=== PATIENT | female | born 1985 | race Caucasian/White ===

== ENCOUNTER 2021-11-07 08:14 | Emergency (ER) | payer MEDICAID, SELFPAY ==
[2021-11-07 08:22] VITALS: BP 119/81; RESP 20; TEMP 35.9; O2SAT 97; BMI 26.4
--- NOTE | 2021-11-07 08:53 | ED.EAR ---
HPI - Ear Problem General Chief complaint: Ear/Nose/Throat Problem Stated complaint: Covid+ Ear pain Time Seen by Provider: 11/07/21 08:17 Source: patient Mode of arrival: ambulatory Limitations: no limitations History of Present Illness HPI Narrative: Patient presents with 6 days of COVID symptoms, testing positive on day of onset, 6 days ago. Initially started with a fever and fatigue. The next day progressed to headache, sore throat, myalgias, eye pain which has been progressive over the last 5 days. Yesterday, she began having left ear pain which is worse today, she is unable to sleep due to this. She has been using DayQuil but no pain relievers to help with her symptoms. On specific questioning, she does admit that she is having cough which is worse at night she denies a prior history of COPD. She was diagnosed with pneumonia a couple of years ago and does have a nebulizer machine but no longer has supplies for it. Denies a history of asthma. She is not vaccinated against COVID and she does continue to smoke. She is no longer running a fever. Cough is nonproductive. Does feel short of breath at rest and with activity but not severe. No ear drainage noted, no history of ear surgeries, no prior history of recurrent ear infections or antibiotic resistant infections. Past medical history is most notable for generalized anxiety disorder, does not take long-term medications for this. Surgical history is negative for any HEENT surgeries. She has allergies to penicillin. MD Complaint: ear pain Location: left ear Related Data Previous Rx's Medication Instructions Recorded albuterol sulfate 2.5 mg/3 mL 2.5 mg (3 mL) inhalation Q4H PRN 11/07/21 (0.083 %) solution for nebulization #75 mL albuterol sulfate 90 mcg/actuation 2 inh inhalation Q4-6H PRN 11/07/21 breath activated powder inhaler shortness of breath or wheezing #1 ea nebulizer accessories #1 ea 11/07/21 prednisone 20 mg tablet 20 mg PO DAILY #5 tabs 11/07/21 Allergies Allergy/AdvReac Type Severity Reaction Status Date / Time Penicillins Allergy Verified 11/07/21 08:25 Review of Systems Narrative: Pertinent for the generalized, HEENT, respiratory symptoms as above. Denies other cardiovascular, GI, skin, musculoskeletal symptoms besides mild myalgias. PFSH [facility] Medical History (Updated 11/07/21 @ 08:56 by Nicole Lira MD) Generalized anxiety disorder Social History Smoking Status: Current every day smoker What tobacco products do you use: cigarettes Do you use any of these nicotine containing products: None Second hand tobacco smoke exposure: No How often do you have a drink containing alcohol: monthly or less How many standard drinks containing alcohol do you have on a typical day: 3 or 4 How often do you have six or more drinks on one occasion: Never AUDIT-C Alcohol total score: 2 Non-prescribed substance use: denies use Exam Const: Vital Signs, click to edit/add: Vital Signs - 24 hr 11/07/21 08:22 Temperature 96.7 F L Respiratory Rate 20 Blood Pressure [Le ft Upper Arm] 119/81 Pulse Oximetry 97 Oxygen Delivery Me thod Room Air Documenting provider has reviewed patient's vital signs: yes Common normals: no apparent distress General appearance: cooperative HENMT: Common normals: normocephalic, EAC's normal and TM's normal bilaterally Head and scalp: normocephalic External auditory canal: EAC's normal Tympanic membrane: TM's normal bilaterally Mouth: oral and palatal mucosa normal Throat: posterior oropharynx normal Other: TMs have normal light reflex bilaterally, are noninjected, no effusion. Nose with mild congestion, no mucopurulent discharge Eye: Common normals: PERRL, conjunctivae normal and no scleral icterus Conjunctiva: conjunctiva(e) normal Pupil: PERRL Neck & C-Spine: Common normals: full ROM and no lymphadenopathy Lymph: Lymphatic: no lymphadenopathy noted Resp: Common normals: normal respiratory effort Other: Moderate expiratory wheezing with mild prolongation of expiration. No crackles. Normal respiratory effort. No rales. Cardio: Common normals: regular rate, regular rhythm, S1 normal heart sound, S2 normal heart sound, no murmurs and peripheral pulses 2+ throughout Rate: regular rate Rhythm: regular rhythm Heart sounds: S1 normal and S2 normal Peripheral pulses: pulses 2+ throughout GI: Common normals: Normal to inspection, nondistended, normoactive bowel sounds present and soft to palpation Palpation: soft Extremity: General: no edema Neuro: Speech: speech normal Psych: Common normals: thought process normal Mood and affect: euthymic mood Thought process: normal thought process Insight: insight good Judgement: judgment good Skin: Common normals: no rashes or lesions noted General skin exam: no rashes or lesions noted Course Vital Signs Vital signs: Initial Vital Signs Temperature 96.7 F L 11/07/21 08:22 Temperature Source Temporal Artery Scan 11/07/21 08:22 Respiratory Rate 20 11/07/21 08:22 Blood Pressure 119/81 11/07/21 08:22 Blood Pressure Mean 93 11/07/21 08:22 Blood Pressure Position Sitting 11/07/21 08:22 Pulse Oximetry 97 11/07/21 08:22 Oxygen Delivery Method 11/07/21 08:22 Vital Signs Temperature 96.7 F L 11/07/21 08:22 Respiratory Rate 20 11/07/21 08:22 Blood Pressure 119/81 11/07/21 08:22 Pulse Oximetry 97 11/07/21 08:22 Oxygen Delivery Method 11/07/21 08:22 Temperature 96.7 F L 11/07/21 08:22 Respiratory Rate 20 11/07/21 08:22 Blood Pressure 119/81 11/07/21 08:22 Pulse Oximetry 97 11/07/21 08:22 Oxygen Delivery Method 11/07/21 08:22 Medical Decision Making MDM Narrative Medical decision making narrative: Counseled patient that referred pain is quite common in adults, no signs of an ear infection that would benefit from antibiotic therapy at this point symptomatic care discussed. Counseled patient on a much more concerned about the degree of wheezing and her risk factors for worsening COVID. She was agreeable to prednisone, a nebulizer treatment and home treatment for suspected COPD flare from COVID. I do not detect any signs of bacterial pneumonia on exam, she is not significantly hypoxic nor tachypneic. Chest x-ray would not assist in my medical decision making today. She is not a candidate for Paxil better other antiviral therapy due to the duration of her symptoms. This was discussed as well. Alarm symptoms and indications were coming back to the emergency department are discussed as well, she verbalizes understanding and agreement. Differential Diagnosis Differential Diagnosis: Otitis media, serous otitis, sinusitis, strep pharyngitis, COVID-19, COPD Discharge Plan Discharge Clinical Impression: COVID-19 Patient Disposition: Home, Self-Care Condition: Stable Instructions: COVID-19 and Chronic Health Conditions (ED) Additional Instructions: As we discussed, ear pain in adults can be from many different sources. The ears are wire into the same nerves as the nose in the back of the throat. It is common for years to hurt when these structures are inflamed. There are no signs of bacterial ear infections today. I would recommend that you continue on your DayQuil and that you begin taking Tylenol 1000 mg 4 times daily to help with the ear pain. Warm compresses may be helpful as well. A much more concerned about the wheezing that I hear in your lungs. Being unvaccinated and also a smoker with a history of pneumonia makes you very vulnerable to respiratory failure from COVID. In the emergency department, you were given a nebulizer solution and your 1st dose of prednisone, a steroid that will help reduce some of the inflammation. The typical course of this strain of COVID peaks on day 10-11. This means that your lungs may worsen. I would like for you to take prednisone for an additional 4 days, and I am sending prescriptions for nebulizer kit, medications to run through your nebulizer and also an inhaler to take on the go. Your likely to continue to wheeze for about 2 more weeks. Will take your lungs about 5 weeks to completely recover. Come back to the emergency department if you are so short of breath you cannot walk from her bed to the bathroom and or your oxygen levels are below 90% even at rest. Antibiotics will not be helpful at this stage of the illness, but maybe if secondary pneumonia develops which is typically around a 10-12. Come back to the emergency department if your worsening significantly. Activity Level: Activity as Tolerated Discharge Diet: Regular Prescriptions: New prednisone 20 mg tablet 20 mg PO DAILY Qty: 5 0RF (DME) nebulizer accessories Misc See Rx Instructions .Route Qty: 1 1RF Rx Instructions: As directed albuterol sulfate 2.5 mg /3 mL (0.083 %) solution for nebulization 2.5 mg inhalation Q4H PRNQty: 75 1RF albuterol sulfate 90 mcg/actuation aerosol powdr breath activated 2 inh inhalation Q4-6H PRN (Reason: shortness of breath or wheezing) Qty: 1 1RF Follow Up/Referrals: Stacia Falk MD [Primary Care Provider] - Stand Alone Forms: [employer] Info Instructions
[2021-11-07] MEDS: predniSONE 10 MG TABLET 40 MG PO (08:58)
[2021-11-07] MEDS: IPRAT-ALBUT 0.5-2.5 MG/3 ML NEB 1 NEB IH (08:59)
== END 2021-11-07 09:21 | disposition home or self-care (01) ==
LOC: ED 08:57
PROVIDERS: Emergency Provider Family Medicine; PCP Family Medicine
DX: U07.1 COVID-19 (principal)
CPT/HCPCS: 94640; 99282; 99284; J7512

== ENCOUNTER 2021-11-08 17:13 | Emergency (ER) | payer MEDICAID, SELFPAY ==
[2021-11-08 17:33] VITALS: BP 125/76; PULSE 73; RESP 24; TEMP 36.4; O2SAT 95; BMI 42.6
--- NOTE | 2021-11-08 17:54 | CRLHL7_ITS ---
For Patients: As a result of the Cures Act, medical imaging exams and procedure reports are released immediately into your electronic medical record. You may view this report before your referring provider. If you have questions, please contact your health care provider. Indication: Cough, guzman virus Comparison: Two-view chest January 23, 2020 Technique: Single AP view chest Findings: There is hyperinflation and mild central bronchial thickening. There is no focal consolidation, effusion, or pneumothorax. The cardiomediastinal silhouette is within normal limits. The bony thorax is grossly intact. Impression: Mild central bronchial thickening without dense consolidation. Dictated by Marlon Esparza MD @ 11/08/2021 7:13:28 PM (Electronically Signed)
--- NOTE | 2021-11-08 17:55 | ED.CHESTPAIN ---
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 She states that she feels like her heart is full. She is a smoker. She was diagnosed with COVID 1 week ago. She does have albuterol that she uses at home as needed. She was also started on a steroid this week. She reports some nausea but no vomiting. She does have some lightheadedness and feels some shortness of breath. She states that she felt sweaty. Prior to this she had good exercise tolerance. She arrives with normal vital signs and is in no acute distress. She is not using accessory muscles for breathing. She states that the discomfort in her left anterior chest is not reproducible with certain movements, deep breathing, or palpating in this area. She reports a family history of coronary artery disease. Her mother from a heart attack. Related Data Previous Rx's Medication Instructions Recorded albuterol sulfate 2.5 mg/3 mL 2.5 mg (3 mL) inhalation Q4H PRN 11/07/21 (0.083 %) solution for nebulization #75 mL albuterol sulfate 90 mcg/actuation 2 inh inhalation Q4-6H PRN 11/07/21 breath activated powder inhaler shortness of breath or wheezing #1 ea nebulizer accessories #1 ea 11/07/21 prednisone 20 mg tablet 20 mg PO DAILY #5 tabs 11/07/21 Allergies Allergy/AdvReac Type Severity Reaction Status Date / Time Penicillins Allergy Verified 11/07/21 08:25 Review of Systems Status of ROS Reports: 10 or more systems reviewed and unremarkable except as noted in History and below Narrative Constitutional: No fevers, no weight gain or loss. Eyes: No discharge. No vision changes. HENT: No congestion, no sore throat, no ear pain. Cardiovascular: No palpitations. Chest discomfort as described above. Respiratory: She reports a cough and congestion. Gastrointestinal: No abdominal pain, no vomiting, no diarrhea. Genitourinary: No dysuria, no hematuria. Musculoskeletal: Normal range of motion. Skin: No rashes, no pruritis. Neurological: No dizziness, weakness, sensory change, speech change. Endo/Heme/Allergies: No bruising or bleeding. No polydipsia. Pysch: no suicidality, no anxiety, no insomnia. All other systems reviewed and are negative. [facility] Medical History (Updated 11/08/21 @ 18:55 by Landen Benavides MD) Generalized anxiety disorder Social History Smoking Status: Current every day smoker What tobacco products do you use: cigarettes Do you use any of these nicotine containing products: None Second hand tobacco smoke exposure: No How often do you have a drink containing alcohol: monthly or less How many standard drinks containing alcohol do you have on a typical day: 3 or 4 How often do you have six or more drinks on one occasion: Never AUDIT-C Alcohol total score: 2 Non-prescribed substance use: denies use Exam Narrative Exam Narrative: Constitutional: Well-developed, well-nourished, no acute distress. HEENT: Normocephalic, atraumatic. Neck: Normal range of motion. Nontender. Supple. Heart: Regular. No murmurs. Normal rate. Intact distal pulses. Lungs: Clear to auscultation. No chest discomfort. No wheezes, rhonchi, or rales. Abdomen: Normal bowel sounds. Nontender. No rebound tenderness. Genitalia: Deferred. Back: No midline tenderness. Normal range of motion. Extremities: Normal range of motion. No injury. Skin: Intact. No rash. Warm. No erythema or pallor. Neurologic: No altered sensation. No weakness. Alert and oriented. Psychiatric: No suicidality. No anxiety or depression. No insomnia. Nursing notes and vitals signs are reviewed. Const Vital Signs, click to edit/add: Vital Signs - 24 hr 11/08/21 17:33 Temperature 97.6 F Pulse Rate [Left Pulse Oximeter] 73 Respiratory Rate 24 Blood Pressure [Right Upper Arm] 125/76 Pulse Oximetry 95 Oxygen Delivery Method Room Air Course Vital Signs Vital signs: Initial Vital Signs Temperature 97.6 F 11/08/21 17:33 Temperature Source Temporal Artery Scan 11/08/21 17:33 Pulse Rate 73 11/08/21 17:33 Pulse Rhythm 11/08/21 17:33 Respiratory Rate 24 11/08/21 17:33 Blood Pressure 125/76 11/08/21 17:33 Blood Pressure Mean 92 11/08/21 17:33 Blood Pressure Position Supine 11/08/21 17:33 Pulse Oximetry 95 11/08/21 17:33 Oxygen Delivery Method 11/08/21 17:33 Vital Signs Temperature 97.6 F 11/08/21 17:33 Pulse Rate 73 11/08/21 17:33 Respiratory Rate 24 11/08/21 17:33 Blood Pressure 125/76 11/08/21 17:33 Pulse Oximetry 95 11/08/21 17:33 Oxygen Delivery Method 11/08/21 17:33 Temperature 97.6 F 11/08/21 17:33 Pulse Rate 73 11/08/21 17:33 Respiratory Rate 24 11/08/21 17:33 Blood Pressure 125/76 11/08/21 17:33 Pulse Oximetry 95 11/08/21 17:33 Oxygen Delivery Method 11/08/21 17:33 MDM - Chest Pain MDM Narrative Medical decision making narrative: This patient comes in reporting a week of upper respiratory symptoms related to a COVID infection. She has been feeling some fullness in her left chest that she attributes to her heart. She does not have any exercise tolerance. She arrives with normal vital signs and actually has rather normal exam. I discussed lab and imaging options with the patient and it was agreed by shared decision to have an x-ray done along with EKG and a bedside ultrasound of her heart. These results are returned with normal findings. This was sufficiently reassuring to the patient. She is currently taking a steroid. She also has albuterol that can be used as needed and directed. I did provide a prescription for Tylenol 3. Imaging Data Chest x-ray: My impression: Negative chest by my review with radiology report pending. ECG Data Attestation: I personally reviewed and interpreted this ECG as follows: Interpretation: Normal sinus rhythm. Rate is 68 beats per minute. There are no specific ST or T-wave abnormalities. Discharge Plan Discharge Clinical Impression: COVID-19 Patient Disposition: Home, Self-Care Condition: Stable Additional Instructions: Use medication as needed and indicated. Follow up with MD or return if worsening. Prescriptions: No Action prednisone 20 mg tablet 20 mg PO DAILY Qty: 5 0RF (DME) nebulizer accessories Misc See Rx Instructions .Route Qty: 1 1RF Rx Instructions: As directed albuterol sulfate 2.5 mg /3 mL (0.083 %) solution for nebulization 2.5 mg inhalation Q4H PRNQty: 75 1RF albuterol sulfate 90 mcg/actuation aerosol powdr breath activated 2 inh inhalation Q4-6H PRN (Reason: shortness of breath or wheezing) Qty: 1 1RF Follow Up/Referrals: Stacia Falk MD [Primary Care Provider] - Stand Alone Forms: [employer] Info Instructions Procedures Ultrasound Cardiac exam #1: Anatomical areas examined: subxiphoid, parasternal long and parasternal short Indications: chest pain Exam type: limited transthoracic echocardiogram Impression: negative exam
== END 2021-11-08 19:00 | disposition home or self-care (01) ==
PROVIDERS: Emergency Provider Emergency Medicine Emergency Medical Services; PCP Family Medicine
DX: U07.1 COVID-19 (principal)
CPT/HCPCS: 71045; 76604; 76705; 93005; 93308; 99284

== ENCOUNTER 2022-06-25 17:35 | Emergency (ER) | payer MEDICAID, SELFPAY ==
[2022-06-25 17:46] VITALS: BP 115/76; PULSE 73; RESP 18; TEMP 36.2; O2SAT 98; BMI 41.6
[2022-06-25 18:00] LABS: Appearance Urine Clear (Clear); Bilirubin Urine Negative (Negative); Blood Urine Negative (Negative); Color Urine Yellow (Yellow); Glucose Urine Negative (Negative); Ketones Urine Negative (Negative); Leukocyte Esterase Urine Negative (Negative); Nitrite Urine Negative (Negative); Protein Urine Negative (Negative); Specific Gravity Urine 1.025 (1.000-1.030); Urobilinogen Urine 0.2 (0.2-1.0); pH Urine 5.5 (5.0-8.5)
[2022-06-25 18:10] LABS: RBC Urine 0-2 (0-2); WBC Urine 0-2 (0-5)
== END 2022-06-25 20:32 | disposition left against medical advice (07) ==
PROVIDERS: Emergency Provider Emergency Medicine Emergency Medical Services; PCP Family Medicine
DX: R10.9 Unspecified abdominal pain (principal); Z53.21 Procedure and treatment not carried out due to patient leaving prior to being seen by health care provider
CPT/HCPCS: 81001

== ENCOUNTER 2023-10-18 13:45 | Outpatient (RCR) | payer OTHER, MEDICAID, SELFPAY | END 2024-02-15 23:59 | disposition home or self-care (01) | PROVIDERS: PCP Family Medicine; Visit Provider Family Medicine | DX: M25.552 Pain in left hip (principal); M25.652 Stiffness of left hip, not elsewhere classified; M62.9 Disorder of muscle, unspecified; M53.2X8 Spinal instabilities, sacral and sacrococcygeal region; Z51.89 Encounter for other specified aftercare | CPT/HCPCS: 97110; 97140; 97162 ==

== ENCOUNTER 2023-12-23 17:54 | Outpatient (CLI) | payer MEDICAID, SELFPAY | END 2023-12-23 17:55 | disposition home or self-care (01) | LOC: NFLDREF 12-24 19:18 | PROVIDERS: PCP Family Medicine; Referring Provider Family Medicine; Visit Provider Physician Assistant | DX: R30.0 Dysuria (principal) | CPT/HCPCS: 87086; 87186 ==

== ENCOUNTER 2024-12-23 15:17 | Outpatient (CLI) | payer MEDICAID, SELFPAY | END 2024-12-23 15:18 | disposition home or self-care (01) | LOC: AMB 12-26 19:23 | PROVIDERS: PCP Family Medicine; Visit Provider Family Medicine | DX: I49.9 Cardiac arrhythmia, unspecified (principal); R42 Dizziness and giddiness | CPT/HCPCS: A0425; A0427 ==

== ENCOUNTER 2024-12-23 16:10 | Emergency (ER) | payer MEDICAID, SELFPAY ==
[2024-12-23] VITALS (21 sets, daily range): BP systolic 106–128; BP diastolic 57–97; PULSE 65–87; RESP 8–21; TEMP 36.2; O2SAT 95–100; BMI 41.5
--- OUTSIDE RECORDS SUMMARY | 2024-12-23 16:12 | XMS_ITS | Clinical Summary ---
Author Organization [facility] Address [address] [place] [id number] Care Team Providers Care [employer] Contact Printer Name Role Phone Stacia Falk MD Primary Care Provider [phone] Allergies Active Allergy Reactions Criticality Noted Date Comments Penicillins 04/20/2007 Over used when she was young, she had rheumatic fever. Medications cyclobenzaprine (FLEXERIL) 5 mg tabletIndication s:TMJ dysfunction Take 1-2 Tablets (5-10 mg) by mouth every 8 hours if needed for Muscle Spasm. 20 Tablet 4 Active albuterol HFA (Ventolin HFA) 90 mcg/actuation inhalerIndicatio ns:SOB (shortness of breath) Inhale 1-2 Puffs by mouth every 4 hours if needed for Shortness Of Breath or Wheezing. 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 09/26/2023 Elevated WBC count 08/01/2023 Overview (08/01/2023): Neutrophils and lymphs TMJ dysfunction 05/17/2023 Family history of diabetes mellitus 05/17/2023 Dizziness 05/17/2023 Paroxysmal SVT (supraventricular tachycardia) BMI 40.0-44.9, adult 11/09/2018 Moderate episode of recurrent major depressive d isorder 05/11/2017 LGSIL of cervix of undetermined significance 08/2015 Overview (03/30/2021): 10/30/2014 ASCUS/HPV+ 11/20/2014 [place]: Benign biopsy 01/21/2016 LGSIL 02/05/2016 [place]: No biopsy 12/31/2016 NIL 12/31/2016 [place]: Benign biopsies 03/17/2018 ASCUS/HPV+ 04/12/2018 [place]: BONITA I 03/17/2021 ASCUS/HPV+, HPV 16/18 negative Plan: Colposcopy Tobacco abuse 02/24/2013 Adjustment disorder with mixed anxiety and depre ssed mood 08/03/2011 Herpes simplex without mention of complication 1 03/10/2008 Anxiety state, unspecified 09/10/2008 Nondependent amphetamine or related acting sympathomimetic abuse, in remission Panic disorder (episodic paroxysmal anxiety) Attention deficit hyperactivity disorder (ADHD) Bipolar disorder Resolved Problems Problem Noted Date Diagnosed Date Resolved Date Dysplasia of cervix, low grade (BONITA 1) 04/14/2018 11/20/2018 Overview (04/14/2018): BONITA 1 on pathology 03/2018. Will need repeat Pap smear with cotesting in 2019 Marginal Placenta previa in second trimester, normal on 31 week ultrasound 04/23/2016 07/12/2023 Overview (04/23/2016): Next ultrasound is due at 28 weeks. 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 No outbreaks since then. acyclovir filled. Will plan on starting prophylaxis at [address] Brower do delivery, she will schedule an OB check with her to help decide. Supervision of other normal 09/20/2008 08/22/2014 Immunizations Immunization Administration Dates Next Due Influenza A (H1N1), Inactiva sarah (Age >=3 Years) 01/03/2009 Influenza, IIV3 (Age >=3 years) 11/11/2008,02/09,12/30/2003 Influenza, IIV4 12/23/2015 Tdap 07/14/2016,09/06/2011 Family History Medical History Relation Name Comments Good Health Father Cancer-breast Maternal Aunt 1 Other Maternal Aunt 2 lupus Good Health Mother Diabetes Paternal Grandmother Heart Disease Paternal Grandmother Relation Name Status Comments Father Maternal Aunt 1 Maternal Aunt 2 Mother Paternal Grandmother Social History Tobacco Use Types Packs/Day Years Used Date Smoking Tobacco: Every Day Cigarettes 1 26.8 Started: 03/20/1998 Smokeless Tobacco: Never Tobacco Cessation:Ready to Q uit: Yes; Counseling Given: Yes Alcohol Use Standard Drinks/Week Comments Yes 0 (1 standard drink = 0.6 oz pur e alcohol) 1 drink 4 x a year PHQ-2 Answer Date Recorded PHQ-2 TOTAL SCORE 2 12/21/2023 Social Connections Answer Date Recorded Do you often feel lonely or isolated from those around you? 0 05/09/2024 Financial Resource Strain Answer Date R ecorded Difficulty of Paying Living Expenses 3 05/09/2024 Difficulty of Paying Living Expenses Not on file 05/09/2024 Food Insecurity Answer Date Recorded Do you worry your food will run out before you are able to buy more? 1 05/09/2024 Transportation Needs Answer Date Record ed Does lack of transportation keep you from medica l appointments? 1 05/09/2024 Does lack of transportation keep you from work, meetings or getting things that you need? 1 05/09/2024 Housing Stability Answer Date Recorded What is your housing situation today? 1 05/09/2024 Interpersonal Safety Answer Date Record ed Are you being hit, kicked, p ushed or yelled at (see row info)? No 07/12/2023 Interpersonal Safety Abuse 12 - 18 Not on file 07/12/2023 Interpersonal Safety Ambulatory Vulnerability No t on file 07/12/2023 Utilities Answer Date Recorded Do you have trouble paying f or utilities (for example, heat, electricity, water, phone)? 1 05/09/2024 Comments No Sex and Gender Information Value Date Recorded Sex Assigned at Female 11/02/2020 9:53 AM CDT Legal Sex Female 5:24 AM SYSTEMS SOFTWARE ENGINEER Gender Identity Female 11/02/2020 9:53 AM CDT Sexual Orientation Straight 11/02/2020 9: 53 AM CDT Occupation Industry Job Start Date Job End Date [employer] Not on file Not on file Not on file [employer] WORK Not on file Not on file Not on file Obstetrics History Para Term AB IAB SAB Ectopic Multiple Livin g Live Births 6 3 3 1 1 3 Date Outcome GA Total Labor Labor/2nd/3rd Weight Sex Type Anes PTL Anu A1 A5 Name Clin 2004 Term 40w 0d 12h 00m/ 3.37 kg (7 lb 7 oz) M Vag Kaleb 2005 Term 40w 0d 5h 00m/ 2.61 kg (5 lb 12 oz) M Vag rj 2009 Term 40w 0d 6h 00m/ 3.4 kg (7 lb 8 oz) M Vag Blaine 2012 SAB Comments:12 weeks Last Filed Vital Signs Vital Sign Reading Time Taken Comments Blood Pressure 112/76 05/09/2024 2:46 PM CDT Pulse 69 05/09/2024 2:46 PM CDT Temperature 37.1 C (98.7 F) 05/09/2024 2:46 PM CDT Respiratory Rate 16 08/04/2023 8:50 AM CDT Oxygen Saturation 100% 05/09/2024 2:46 PM CDT Inhaled Oxygen Concentration - - Weight 119.3 kg (263 lb) 05/09/2024 2:46 PM CDT Height 166.4 cm (5' 5.51) 08/04/2023 8:50 AM CD T Body Mass Index 43.08 08/04/2023 8:50 AM CDT Plan of Treatment Upcoming Encounters Date Type Department Care Team (Late st Contact Info) Description 01/03/2025 9:10 AM SYSTEMS SOFTWARE ENGINEER Office Visit [facility] [address] [place] [address] Stacia Falk MD [address] [place] [address] Health Maintenance Due Date Last Done Comments Hepatitis B series for 19+ ( 1 of 3 - 19+ 3-dose series) 2004 Pneumococcal series for age 6-49 (1 of 2 - PCV) 2004 HPV series for age 9-45 (1 - 3-dose SCDM series) 2012 Pap test for age 21-65 03/17/2024 2, 03/17/2021, 03/17/2018, Additional history exists BMI (ht and wt on same day) for age 18+ 08/03/2024 08/04/2023, 03/10/2022, 03/17/2021, Additional history exists Influenza Vaccine (#1) 2024 6, 11/11/2008, 02/09/2006, Additional history exists Depression screening for age 12+ 12/20/2024 12/21/2023, 11/18/2023, 06/15/2022, Additional history exists Tetanus booster 07/14/2026 07/14/2016, 09/06/2011 RSV vaccine for adults or (1 - 1-dose 75+ series) 2060 HIV for age 15-65 Completed 12/23/2015, , 06/01/2012, Additional history exists Hepatitis C screening for ag e 18-79 Completed 12/23/2015 Procedures Procedure Name Priority Date/Time Associated Diagnosis Comments AUTOMATIC LOG CUT OFF SAWYER THIN PREP PAP DIAGNOSTIC IMAGED Routine 03/17/2021 8:54 AM SYSTEMS SOFTWARE ENGINEER ASCUS with positive high risk HPV cervical ANTI HIV 1/2 Routine 12/23/2015 1:31 PM SYSTEMS SOFTWARE ENGINEER Less than 8 weeks gestation of (HC) ANTI HCV Routine 12/23/2015 1:31 PM SYSTEMS SOFTWARE ENGINEER Less than 8 weeks gestation of (HC) from Last 3 Months or Most Recently Relevant to Health Maintenance Results * (ABNORMAL) AUTOMATIC LOG CUT OFF SAWYER THIN PREP PAP DIAGNOSTIC IMAGED (03/17/2021 8:54 AM SYSTEMS SOFTWARE ENGINEER) Case Report Gynecologic Cytology Report Case: [id number] Authorizing Provider: Stacia Falk MD Collected: 03/17/2021 0854 Ordering Location: [facility] Received: 03/17/2021 0922 Clinic First Screen: Maximiliano Judd Pathologist: Bri Bennett MD Specimen: AUTOMATIC LOG CUT OFF SAWYER ThinPrep Vial Diagnostic, Cervical 03/25/2021 9:33 AM SYSTEMS SOFTWARE ENGINEER [facility] INTERPRETATION/ RESULT ATYPICAL SQUAMOUS CELLS OF UNDETERMINED SIGNIFICANCE (ASCUS)(A) (none) 03/25/2021 9:33 AM SYSTEMS SOFTWARE ENGINEER [facility] at 0933 SYSTEMS SOFTWARE ENGINEER SPECIMEN ADEQUACY Satisfactory for evaluation No endocervical component seen 03/25/2021 9:33 AM SYSTEMS SOFTWARE ENGINEER [facility] HPV REQUEST HPV and PAP 03/25/2021 9:33 AM SYSTEMS SOFTWARE ENGINEER [facility] Date of LMP na 03/25/2021 9:33 AM SYSTEMS SOFTWARE ENGINEER [facility] Last Pap Date 03/17/18 03/25/2021 9:33 AM SYSTEMS SOFTWARE ENGINEER [facility] Last Pap Result ASCUS 9:33 AM SYSTEMS SOFTWARE ENGINEER [facility] Abnormal Pap or [place] Bx in last 5 years Yes 03/25/2021 9:33 AM SYSTEMS SOFTWARE ENGINEER [facility] Menstrual Status Hormonally Suppressed 03/25/2021 9:33 AM SYSTEMS SOFTWARE ENGINEER [facility] [place] Bx Done Today No 03/25/2021 9:33 AM SYSTEMS SOFTWARE ENGINEER [facility] Additional Information None Given 03/25/2021 9:33 AM SYSTEMS SOFTWARE ENGINEER [facility] Comment: Cytology is screened at [facility] - [address], [place] [address] and [facility] - [address], [place] [address] and [facility] - [address] [place] [address] Interpreted at [facility] - [address], [place] [address] Automated Review Successful 03/25/2021 9:33 AM SYSTEMS SOFTWARE ENGINEER [facility] Comment:Specimen processed s uccessfully by automated film drying machine operator device, ThinPrep Imaging System, [employer] ANCILLARY TESTING AUTOMATIC LOG CUT OFF SAWYER HPV Ordered, Please see separate report 03/25/2021 9:33 AM SYSTEMS SOFTWARE ENGINEER [facility] Note The pap test is a screening technique, not a diagnostic procedure. It is used primarily to screen for squamous cancers and precursor lesions. Published studies have shown that it is subject to both false negative and false positive results. The pap test should not be used as the sole means to diagnose or exclude pre-malignant and malignant lesions. 03/25/2021 9:33 AM SYSTEMS SOFTWARE ENGINEER [facility] Other (Cervical) Non-Blood / Unknown 03/17/2021 8:54 AM SYSTEMS SOFTWARE ENGINEER 03/17/2021 9:22 AM SYSTEMS SOFTWARE ENGINEER Stacia Falk MD PATHOLOGY/CYTOLOGY Final Re sult [facility] [address] [place] [address], [place] * ANTI HCV (12/23/2015 1:31 PM SYSTEMS SOFTWARE ENGINEER) HEPATITIS C ANTIBODY Non-Reacti ve Non-Reacti ve 12/23/2015 9:27 PM SYSTEMS SOFTWARE ENGINEER [facility] Blood BLOOD SPECIMEN / Unknown Venipuncture / Unknown 12/23/2015 1:31 PM SYSTEMS SOFTWARE ENGINEER 12/23/2015 1:31 PM SYSTEMS SOFTWARE ENGINEER Narrative [facility] - 12/23/2015 9:27 PM SYSTEMS SOFTWARE ENGINEER Antibodies to HCV not detected; does not exclude the possibility of exposure to HCV. us Emily OWENS SEND OUTS Final R esult [facility] [address] [place] [address], [place] * ANTI HIV 1/2 (12/23/2015 1:31 PM SYSTEMS SOFTWARE ENGINEER) HIV-1/HIV-2 ANTIBODY Non-Reacti ve Non-Reacti ve 12/23/2015 9:31 PM SYSTEMS SOFTWARE ENGINEER [facility] Blood BLOOD SPECIMEN / Unknown Venipuncture / Unknown 12/23/2015 1:31 PM SYSTEMS SOFTWARE ENGINEER 12/23/2015 1:31 PM SYSTEMS SOFTWARE ENGINEER Narrative [facility] - 12/23/2015 9:31 PM SYSTEMS SOFTWARE ENGINEER HIV-1 p24 and HIV-1/HIV-2 Ab not detected us Emily OWENS SEND OUTS Final R esult [facility] [address] [place] [address], from Last 3 Months or Most Recently Relevant to Health Maintenance Insurance [facility] NONPROFIT INSURANCE [employer] NONPROFIT INSURANCE TRUST Care Teams [employer] Contact Printer Relationship Specialty Start Date End Date Stacia Falk MD [address] [place] [address] PCP - General Family Practice 02/15/17
--- NOTE | 2024-12-23 16:34 | CRLHL7_ITS ---
For Patients: As a result of the Cures Act, medical imaging exams and procedure reports are released immediately into your electronic medical record. You may view this report before your referring provider. If you have questions, please contact your health care provider. INDICATION: : dyspnea, episodes of SVT COMPARISON: Chest radiograph on November 08, 2021 and January 23, 2020 TECHNIQUE: Two view(s) of the chest FINDINGS: The cardiomediastinal silhouette and pulmonary vasculature are unremarkable. There is no focal airspace consolidation, pleural effusion, or pneumothorax. No displaced fractures. IMPRESSION: No acute cardiopulmonary process. Dictated by Edward Smith MD @ 12/23/2024 5:09:26 PM (Electronically Signed)
--- NOTE | 2024-12-23 16:35 | ED.GENADULT ---
HPI - General Adult General Date Seen: 12/23/24 Chief complaint: Arrhythmia/Palpitations Stated complaint: Dizziness Time Seen by Provider: 12/23/24 16:33 History of Present Illness HPI narrative: 39-year-old female brought to the ER today by EMS. Report from EMS is that she had a dizzy spell while driving so pulled over and called 911. After they arrived, she developed a regular narrow complex tachycardia that they suspect was SVT. They had the patient do Valsalva maneuvers but did not did not break . then she spontaneously converted back to sinus before they could do any pharmacologic intervention. She apparently reported to them a history of SVT. She is a smoker. She drinks a couple of energy drinks every day. No other drugs. History from the patient is that she does have a history of some sort of tachycardia few years ago that was diagnosed in the ER in [place]. She does not really remember the specifics of that and does not remember if she was referred to a financial services associate or not. She is able to tell me that she has been having dizzy spells off and on for the past couple of days, multiple times per day, probably more than once every hour. With these dizzy spells she does not really feel any chest pain or palpitations. No fainting. No other symptoms between the dizzy spells. She is not sure what to make of the disease shows because she does have history of anxiety and panic attacks and has had panic attacks before. In particular, she apparently had a lot of panic attacks after her mother . She reports a history of anxiety and depression but is not currently on any meds. When asked directly about SVT she says he thinks that was the tachycardia that she had. She does not remember if she was referred to her financial services associate or not She does smoke tobacco. No drugs. She drinks energy drinks. No alcohol. 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 No recent cough. No fevers. No abdominal pain. No vomiting or diarrhea. During her episode of dizziness and palpitations in the ambulance she also had some pleuritic left-sided chest pain. That is feeling better now. Through [employer] [facility] and see that she has an ER visit from December 2022 for episodes of lightheadedness. During that ER visit she had a workup that showed normal sodium 140, potassium 4.3, chloride 106, bicarb 27, glucose 85, BUN 14, creatinine 0.61, magnesium 2.1, negative test, white count 14, hemoglobin 13.6, platelet count 283. Urinalysis normal. COVID negative. Flu negative. Troponin undetectable. EKG shows sinus rhythm. Diagnosed with vertigo. She had an ER visit to the ER in [place] on 10/22/2020 for syncope, weakness, back pain. Per that note she had a history of paroxysmal SVT but had not yet started her Zio patch. In the ER that day EKG and troponin were normal. CT head was normal. Chest x-ray was. Electrolytes were normal. I reviewed the rhythm strips brought in by EMS. The show a regular narrow complex tachycardia with heart rate around 150-155. I suspect this is SVT but differential could include a flutter with 2:1 conduction. Related Data Home Medications ?Medication ?Instructions ?Recorded ?Confirmed levonorgestrel (Mirena) intrauterine 12/23/24 Previous Rx's ?Medication ?Instructions ?Recorded metoprolol tartrate 25 mg tablet 12.5 mg (1/2 x 25 mg) PO BID PRN 12/23/24 Dizzy spells #30 tabs Allergies Allergy/AdvReac Type Severity Reaction Status Date / Time Penicillins Allergy Verified 12/23/23 18:02 [facility] Medical History (Updated 12/23/24 @ 19:58 by Boni Nugent MD) Generalized anxiety disorder ?F41.1 - Generalized anxiety disorder (ICD-10) Social History Smoking Status: Current every day smoker What tobacco products do you use: cigarettes Do you use any of these nicotine containing products: None Second hand tobacco smoke exposure: No How often do you have a drink containing alcohol: monthly or less How many standard drinks containing alcohol do you have on a typical day: 3 or 4 How often do you have six or more drinks on one occasion: Never AUDIT-C Alcohol total score: 2 Non-prescribed substance use: denies use service: No Exam Narrative: Exam Narrative: Constitutional: Appears well-developed and well-nourished. Alert. Conversant. Non toxic. HENT: Head: Atraumatic. Nose: Nose normal. Mouth/Throat: Oral mucosa is clear and moist. no trismus. Pharynx normal. Tonsils symmetric. No tonsillar enlargement, erythema, or exudate. Eyes: Conjunctivae normal. EOM normal. Pupils equal, round, and reactive to light. No scleral icterus. Neck: Normal range of motion. Neck supple. No tracheal deviation present. Cardiovascular: Normal rate, regular rhythm. No gallop. No friction rub. No murmur heard. Symmetric radial artery pulses . No JVD Pulmonary/Chest: Effort normal. No stridor. No respiratory distress. No wheezes. No rales. No rhonchi . No tenderness. Abdominal: Soft. No distension. No mass. No tenderness. No rebound. No guarding. Musculoskeletal: RUE: Normal range of motion. No tenderness. No deformity LUE: Normal range of motion. No tenderness. No deformity RLE: Normal range of motion. No edema. No tenderness. No deformity LLE: Normal range of motion. No edema. No tenderness. No deformity Lymph: No cervical adenopathy. Neurological: Alert and oriented to person, place, and time. Normal strength. CN II-VII intact. No sensory deficit. GCS eye subscore is 4. GCS verbal subscore is 5. GCS motor subscore is 6. Normal coordination Skin: Skin is warm and dry. No rash noted. No pallor. Normal capillary refill. Psychiatric: Normal mood. Anxious. Polite. Const: Vital Signs, click to edit/add: Vital Signs - 24 hr 12/23/24 16:14 12/23/24 16:24 12/23/24 16:30 Temperature 97.2 F L Pulse Rate 83 80 Pulse Rate [Pulse Oximeter] 87 Respiratory Rate 20 17 15 Blood Pressure Blood Pressure [Le ft Upper Arm] 128/97 H Pulse Oximetry 100 100 [facility] 12/23/24 16:32 12/23/24 16:59 12/23/24 17:00 Temperature Pulse Rate 84 83 75 Pulse Rate [Pulse Oximeter] Respiratory Rate 14 Blood Pressure 118/72 118/66 Blood Pressure [Le ft Upper Arm] Pulse Oximetry 97 99 99 Oxygen Delivery Me thod 12/23/24 17:01 12/23/24 17:02 12/23/24 17:15 Temperature Pulse Rate 73 76 82 Pulse Rate [Pulse Oximeter] Respiratory Rate 16 18 18 Blood Pressure 106/59 L Blood Pressure [Le ft Upper Arm] Pulse Oximetry 100 100 98 Oxygen Delivery Me thod 12/23/24 17:30 12/23/24 17:33 12/23/24 17:45 Temperature Pulse Rate 71 74 65 Pulse Rate [Pulse Oximeter] Respiratory Rate 13 16 14 Blood Pressure 120/78 Blood Pressure [Le ft Upper Arm] Pulse Oximetry 100 100 99 Oxygen Delivery Me thod 12/23/24 18:00 12/23/24 18:03 12/23/24 18:15 Temperature Pulse Rate 71 72 66 Pulse Rate [Pulse Oximeter] Respiratory Rate 15 Blood Pressure 122/57 L Blood Pressure [Le ft Upper Arm] Pulse Oximetry 95 96 97 Oxygen Delivery Me thod 12/23/24 18:30 12/23/24 18:33 12/23/24 18:45 Temperature Pulse Rate 69 70 Pulse Rate [Pulse Oximeter] Respiratory Rate 21 17 Blood Pressure 117/67 Blood Pressure [Le ft Upper Arm] Pulse Oximetry 95 96 Oxygen Delivery Me thod 12/23/24 18:49 12/23/24 19:00 12/23/24 19:02 Temperature Pulse Rate Pulse Rate [Pulse Oximeter] 78 75 Respiratory Rate 18 8 L 16 Blood Pressure Blood Pressure [Le ft Upper Arm] 117/67 114/70 Pulse Oximetry 98 99 Oxygen Delivery Me thod Room Air Room Air Course Course ED Course: Recheck nurses note that she still has intermittent dizziness and just does not feel right. Heart rate is ranging from 70 up to 107 but seems to be sinus on the monitor. Nurses did a 2nd EKG at 5:26 p.m.. EKG 2. Normal sinus rhythm. Rate 90. RI interval 146. Normal QRS axis. No pathologic Q-waves. No ST segment elevation or depression. No T-wave changes. QTC 378, QTC 462. Patient improved after 0.5 mg Ativan for anxiety. She felt much better. Her sister arrived. Reevaluation(s) Reevaluation #1: Discussed results of workup with the patient her sister. Discussed with cardiology through [facility], Dr. Townsend. She will arrange for outpatient follow-up for this patient with the EP. Plans would be for outpatient Zio patch and echo. She recommends prescription for metoprolol 12.5 mg b.i.d. p.r.n.. Patient can use it if needed if she is having spells of SVT. Vital Signs Vital signs: Initial Vital Signs Temperature 97.2 F L 12/23/24 16:14 Temperature Source Temporal Artery Scan 12/23/24 16:14 Pulse Rate 87 12/23/24 16:14 Respiratory Rate 20 12/23/24 16:14 Blood Pressure 128/97 H 12/23/24 16:14 Blood Pressure Mean 107 H 12/23/24 16:14 Blood Pressure Position Supine 12/23/24 16:14 Pulse Oximetry 100 12/23/24 16:14 Oxygen Delivery Method Room Air 12/23/24 16:14 Vital Signs Temperature 97.2 F L 12/23/24 16:14 Pulse Rate 87 12/23/24 16:14 Respiratory Rate 20 12/23/24 16:14 Blood Pressure 128/97 H 12/23/24 16:14 Pulse Oximetry 100 12/23/24 16:14 Oxygen Delivery Method Room Air 12/23/24 16:14 Temperature 97.2 F L 12/23/24 16:14 Pulse Rate 75 12/23/24 19:02 Respiratory Rate 16 12/23/24 19:02 Blood Pressure 114/70 12/23/24 19:02 Pulse Oximetry 99 12/23/24 19:02 Oxygen Delivery Method Room Air 12/23/24 19:02 Medications Administered Medications: Discontinued Medications Generic Name Dose Route Start Last Admin Trade Name Freq PRN Reason Stop Dose Admin Lorazepam 0.5 mg 12/23/24 17:31 12/23/24 17:37 Lorazepam 2 Mg/Ml Inj IVP 12/23/24 17:32 0.5 mg ONCE ONE Administration Medical Decision Making [facility] Narrative Medical decision making narrative: This patient presents for evaluation of episodes of dizziness off and on for the past couple of days. Rhythm strip per EMS showed a regular narrow complex tachycardia which I think was SVT. Less likely would be a flutter with 2:1 conduction.. Initial ECG here in the ER shows normal sinus rhythm and no dysrhythmogenic abnormality such as WPW, prolonged QT, Brugada syndrome, and no ischemia. lunchroom monitor while the patient here in the ER showed no dysrhythmia or ectopy. No recurrent arrhythmias. A broad differential diagnosis was considered including SVT, Atrial fibrillation, ventricular arrhythmia, thyroid disease, acute electrolyte abnormality, drugs/medications, caffeine intake or other stimulants, medication side effect, anemia, heart disease, PE, among others. The workup and exam here in ED shows not specific cause of the patient's palpitations, and no risks factors to warrant admission. Clinical judgement suggests that supportive outpatient management is indicated. Outpatient follow-up with Cardiology is arranged in the cardiology clinic will call the patient tomorrow to arrange that. Cardiology Will arrange an outpatient Holter monitor an echo. Cardiology recommends initiation of metoprolol 12.5 mg b.i.d. p.r.n.. Discussed the plan in detail with the patient and her sister in precautions to ER were reviewed. Questions answered Lab Data Labs: Lab Results 12/23/24 12/23/24 Range/Units 17:00 17:08 WBC 12.99 H (4.50-11.00) K/uL RBC 4.77 (4.00-5.20) m/uL Hgb 15.1 (12.0-16.0) gm/dL Hct 44.8 (33.0-51.0) % MCV 94 (80-100) fL MCH 32 (26-34) pg MCHC 34 (32-36) gm/dL RDW Coeff of Kenny 12.6 (11.5-15.5) % Plt Count 309 (140-440) K/uL Neut % (Auto) 67.0 (42.0-72.0) % Lymph % (Auto) 23.8 (20-44) % [place] % (Auto) 5.4 (0.0-11.0) % Eos % (Auto) 2.0 (0.0-7.0) % Baso % (Auto) 0.7 (0.0-3.0) % Neut # (Auto) 8.70 H (1.7-7.0) K/uL Lymph # (Auto) 3.10 H (0.90-2.90) K/uL [place] # (Auto) 0.70 (0.00-0.90) K/UL Eos # (Auto) 0.30 (0.00-0.50) K/uL Baso # (Auto) 0.10 (0.00-0.30) K/uL Abs Immat Gran (auto) 0.10 (0.00-0.30) K/uL Imm/Tot Granulo (auto) 1.1 % D-Dimer Quant (PE/DVT) < 0.22 (0.00-0.50) ug/ml Sodium 139 (135-149) mmol/L Potassium 3.7 (3.6-5.1) mmol/L Chloride 104 (96-114) mmol/L Carbon Dioxide 23 (20-32) mmol/L Anion Gap 12 (7-15) mEq/L BUN 13 (5-24) mg/dL Creatinine 0.7 (0.5-1.5) mg/dL Estimated Creat Clear 97.09 Estimated GFR 113 ml/min Glucose 123 H (60-115) mg/dL Calcium 8.9 (8.4-10.6) mg/dL TSH 2.150 (0.270-4.200) uIU/mL Urine HCG, Qual Negative (Negative) POC Troponin I 0.00 L (0.01-0.04) ng/ml Imaging Data Chest x-ray: Attestation: I have reviewed the pertinent imaging results. My impression: No definite acute infiltrates. Question faintly increased opacity in the right upper lobe compared to the left but nothing definite. Await Radiology read Radiologist's impression: FINDINGS: The cardiomediastinal silhouette and pulmonary vasculature are unremarkable. There is no focal airspace consolidation, pleural effusion, or pneumothorax. No displaced fractures. IMPRESSION: No acute cardiopulmonary process. ECG Data Attestation: I personally reviewed and interpreted this ECG as follows: Interpretation: Normal sinus rhythm with sinus arrhythmia Rate 83 beats per minute RI interval 150. No delta waves Normal QRS axis. No pathologic Q-waves. No definite ST segment elevation or depression. Question ST depression only 1 beat of lead V5 which I think is artifact. QT 370, QTC 434 Compared to EKG from 11/09/2021, no definite change in the ST segments and T-waves. Previous low voltage is now normal. Discharge Plan Discharge Clinical Impression: Supraventricular tachycardia Patient Disposition: Home, Self-Care Condition: Stable Instructions: Supraventricular Tachycardia (ED) Additional Instructions: As we discussed, your workup shows that he had another episode of supraventricular tachycardia today. The rest of your workup shows normal blood counts, electrolytes and no sign of heart attack. To help treat this, please try to cut back on smoking and energy drinks. You can use the new [id number] needed. You can take 12.5 mg up to twice a day if needed. You only have to take the metoprolol if you are having a episode of SVT. Please follow-up with your financial services associate within the next few days. You should receive a phone call from your financial services associate at [facility] tomorrow to arrange a follow-up visit. Prescriptions: New metoprolol tartrate 25 mg tablet 12.5 mg PO BID PRN (Reason: Dizzy spells) Qty: 30 2RF No Action Mirena 21 mcg/24hr (up to 8 yrs) 52 mg intrauterine device intrauterine Follow Up/Referrals: Stacia Falk MD [Primary Care Provider, Family Practice] Stand Alone Forms: PT [place] [facility] Info Instructions
[2024-12-23 17:05] LABS: Hematocrit* 44.8 % (33.0-51.0); Hemoglobin* 15.1 gm/dL (12.0-16.0); Immature Granulocytes Pct Auto 1.1 %; Mean Corpuscular HGB Conc 34 gm/dL (32-36); Mean Corpuscular Hemoglobin 32 pg (26-34); Mean Corpuscular Volume 94 fL (80-100); RDW Coefficient of Variation % 12.6 % (11.5-15.5); Red Blood Count* 4.77 m/uL (4.00-5.20); White Blood Count* 12.99 K/uL (4.50-11.00)
[2024-12-23 17:08] LABS: Immature Granulocytes Abs Auto 0.10 K/uL (0.00-0.30); Lymphocytes Absolute Auto 3.10 K/uL (0.90-2.90); Slide Review Reflex No
[2024-12-23 17:16] LABS: Troponin, Point-of-Care* 0.00 ng/ml (0.01-0.04)
[2024-12-23 17:21] LABS: Ur HCG Qualitative* Negative (Negative)
[2024-12-23 17:24] LABS: Chloride* 104 mmol/L (96-114); Potassium* 3.7 mmol/L (3.6-5.1); Sodium* 139 mmol/L (135-149)
[2024-12-23 17:27] LABS: Anion Gap 12 mEq/L (7-15); Blood Urea Nitrogen* 13 mg/dL (5-24); Calcium* 8.9 mg/dL (8.4-10.6); Carbon Dioxide* 23 mmol/L (20-32); Creatinine* 0.7 mg/dL (0.5-1.5); Est. Creatinine Clearance* 97.09; Estimated Glomerular Filt Rate 113 ml/min; Glucose* 123 mg/dL (60-115)
[2024-12-23 17:45] LABS: D Dimer Quantitative* < 0.22 ug/ml (0.00-0.50)
[2024-12-23 18:11] LABS: TSH With Reflex to FT4* 2.150 uIU/mL (0.270-4.200)
== END 2024-12-23 20:07 | disposition home or self-care (01) ==
PROVIDERS: Emergency Provider Emergency Medicine; PCP Family Medicine
DX: I47.10 Supraventricular tachycardia, unspecified (principal); F41.9 Anxiety disorder, unspecified; F17.210 Nicotine dependence, cigarettes, uncomplicated; Z88.0 Allergy status to penicillin
CPT/HCPCS: 36415; 71046; 80048; 81025; 84443; 84484; 85025; 85379; 93005; 96374; 99283; 99284; J2060

== ENCOUNTER 2025-01-23 20:49 | Emergency (ER) | payer MEDICAID, SELFPAY ==
--- OUTSIDE RECORDS SUMMARY | 2025-01-23 20:52 | XMS_ITS | Clinical Summary ---
Author Organization [employer] [facility] Address [address] [place] [address] Care Team Providers Care Sack Keeper Name Role Phone Christine Falk MD Primary Care Provider [phone] Allergies Active AllergyReactionsCriticalityNoted BtznHzketpkhNdhwoftdxsq45/06/2008 Over used when she was young, she had rheumatic fever. Medications MedicationSigDispense QuantityRefillsLast FilledStart DateEnd DateStatus albuterol HFA (Ventolin HFA) 90 mcg/actuation inhaler Indications:SOB (shortness of breath)Inhale 1-2 Puffs by mouth every 4 hours if needed for Shortness Of Breath or Wheezing. ALSO USE 30 MINUTES BEFORE EXERCISE DIRECTED 36 g 5Active multivit with min-folic acid 200 mcg chew Indications:Paroxysmal SVT (supraventricular tachycardia) (HC)Chew by mouth. 90 Tablet 5Active metoprolol succinate (TOPROL XL) 25 mg Sustained-Release tablet Indications:Paroxysmal SVT (supraventricular tachycardia) (HC)Take 1 Tablet (25 mg) by mouth once daily. 90 Tablet 5Active tirzepatide (weight loss) (Zepbound) 2.5 mg/0.5 mL pen Indications:Obesity, Class III, BMI 40-49.9 (morbid obesity) (HC)Inject 2.5 mg subcutaneous once weekly. 2 mL 5Active cyclobenzaprine (FLEXERIL) 5 mg tablet Indications:TMJ dysfunctionTake 1-2 Tablets (5-10 mg) by mouth every 8 hours if needed for Muscle Spasm. 20 Tablet 5Active semaglutide (Wegovy) 0.25 mg/0.5 mL subcutaneous pen Indications:Obesity, Class III, BMI 40-49.9 (morbid obesity) (HC)Inject 0.25 mg subcutaneous once weekly for 28 days. 2 mL /5Active cyclobenzaprine (FLEXERIL) 5 mg tablet Indications:TMJ dysfunctionTake 1-2 Tablets (5-10 mg) by mouth every 8 hours if needed for Muscle Spasm. 20 Tablet Discontinued(Reorder (E-cancel not sent)) propranoloL 10 mg tablet Indications:PalpitationsTake 1 Tablet (10 mg) by mouth two times daily. 20 Tablet Discontinued(*Med complete/Regimen complete/Level of care change) metoprolol tartrate (LOPRESSOR) 25 mg tablet Indications:Paroxysmal SVT (supraventricular tachycardia) (HC)Take 0.5 Tablets (12.5 mg) by mouth two times daily. 30 Tablet /Discontinued(*Med complete/Regimen complete/Level of care change) metoprolol succinate (TOPROL XL) 25 mg Sustained-Release tablet Indications:Paroxysmal SVT (supraventricular tachycardia) (HC)Take 0.5 Tablets (12.5 mg) by mouth once daily. 45 Tablet Discontinued(*Medication adjustment) metoprolol succinate (TOPROL XL) 25 mg Sustained-Release tablet Indications:Paroxysmal SVT (supraventricular tachycardia) (HC)Take 0.5 Tablets (12.5 mg) by mouth two times daily. 90 Tablet Discontinued(*Med complete/Regimen complete/Level of care change)Hospital, Clinic, or Other Facility Administered MedicationOrdered Dose RouteFrequencyStart DateEnd DateStatus etonogestrel subdermal implant 1 Each (NEXPLANON) Indications:Encounter for contraceptive management, unspecified type1 EachSdrmQ 3 05/01/2018Active Active Problems ProblemNoted DateDiagnosed DateLow grade squamous intraepithelial lesion (LGSIL) at risk for high grade squamous intraepithelial lesion (HGSIL) on cytologic smear of lffjwn1301/21/2025 Overview (01/21/2025): 10/2014 ASCUS/HPV+ 11/2014 [place]: Benign biopsy 01/2016 LGSIL 01/2016 [place]: No biopsy 12/2016 NIL 12/2016 [place]: Benign biopsies 03/2018 ASCUS/HPV+ 03/2018 [place]: BONITA I 03/2021 ASCUS/HPV+, HPV 16/18 negative 12/2024 LSIL, cannot exclude HSIL/HPV+, HPV 16/18 negative Plan: Colposcopy Obesity, Class III, BMI 40-49.9 (morbid obesity)01/03/2025Greater trochanteric pain syndrome of left lower eaiwflkxk21/12/2024Elevated WBC count08/01/2023 Overview (08/01/2023): Neutrophils and lymphs TMJ waajzxrrrtk41/02/2024Family history of diabetes frdzftog96/02/2024Dizziness 4Paroxysmal SVT (supraventricular tachycardia)1BMI 40.0-44.9, adult11/09/2018Moderate episode of recurrent major depressive yevsrizx85/28/2018 Tobacco abuse02/24/2013djustment disorder with mixed anxiety and depressed mood 08/03/2011Herpes simplex without mention of /25/2009nxiety state, akaabouvtys68/28/2009Nondependent amphetamine or related acting sympathomimetic abuse, in remissionPanic disorder (episodic paroxysmal anxiety)Attention deficit hyperactivity disorder (ADHD)Bipolar disorder Resolved Problems ProblemNoted DateDiagnosed DateResolved DateDysplasia of cervix, low grade (BONITA 1) Overview (04/14/2018): BONITA 1 on pathology 03/2018. Will need repeat Pap smear with cotesting in 2019 Marginal Placenta previa in second trimester, normal on 31 week ultrasound Overview (04/23/2016): Next ultrasound is due at 28 weeks. 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 acyclovir filled. Will plan on starting prophylaxis at [address] Brower do delivery, she will schedule an OB check with her to help decide. Supervision of other normal ptxuoklss15 Encounters DateTypeDepartmentCare NjreXjoogltjitd07/08/2025Results Follow-Up [facility] [address] [place] [address] Christine Falk MD Pap Plan01/15/2025Telephone [facility] [address] [place] [address] Christine Falk MD Prior Authorization (semaglutide (Wegovy) 0.25 mg/0.5 mL subcutaneous pen APPROVED January 20, 2025to July 21, 2025)01/08/2025Telephone [facility] [address] [place] [address] Christine Falk MD Prior Authorization (tirzepatide (weight loss) (Zepbound) 2.5 mg/0.5 mL pen Denied)01/04/2025Orders Only [facility] [address] [place] [address] Christine Falk MD <No scans attached>01/03/2025 9:10 AM CSTOffice Visit [facility] [address] [place] [address] Christine Falk MD Physical (39 year old); ER Follow up01/03/20254501Rfescd38/19/2025Telephone [facility] - [address] [place] [phone] Raza Wray MD Refill Request; Medication Management (Metoprolol )01/01/2025 2:00 PM CSTOffice Visit [facility]uthi L[facility]pez [address] [place] [address] [address] [facility] [place] [address] Raza Wray MD General Cardiology Est (EST PT. STAT F/U TO [facility] ER 12/25. H/O PSVT. ECHO DONE 12/29./Pt mentions that she feels like she is doing well - did work 9 hours yesterday which is the first time inawhile. Feels like her anxiety has been elevated recently too)12/31/20243790Mtcxee92/15/2025 11:00 AM CSTAncillary Procedure [facility] [address] [place] [address] 12/28/2024 12:45 PM CSTOffice Visit [facility] [address] [place] [address] Christine Falk MD ER Follow up ([facility] 12/23/24 and [facility] 12/25/24)12/28/2024 8:30 AM CSTNurse/Clinic Staff Only [address] [place] [address] 12/28/20247257Baxaqv31/14/2025Refill [facility] [address] [place] [address] Christine Falk MD Refill Request (Metoprolol Tartrate)12/27/20243172Kqzwbl87/11/2025 9:46 AM CONVEYOR INSTALLER - 12/25/2024 12:13 PM CSTEmergency [facility] [address] [place] [address] Tanner Cade MD Palpitations (Primary Dx); Anxiety Discharge Disposition: Home Self Care12/25/20242136Pdagnz96/09/2025Orders Only [facility] Scanner 1 scan: (1-Ord) MARIYA, JOY CHEST 2V, Telephone [facility] [address] [place] [address] Hamid, Izabela, MBChB from Last 3 Months Immunizations ImmunizationAdministration DatesNext DueInfluenza A (H1N1), Inactivated (Age >=3 Years)01/03/2009Influenza, IIV3 (Age >=3 years)11/11/2008,02/09/2006,12/30/2003 Influenza, TUO371/09/20150201Fsvg19/31/2017,09/06/2011 Family History Medical HistoryRelationNameCommentsGood HealthFatherCancer-breastMaternal Aunt 1 OtherMaternal Aunt 2lupusGood HealthMotherDiabetesPaternal GrandmotherHeart DiseasePaternal GrandmotherRelationNameStatusCommentsFatherMaternal Aunt 1 Maternal Aunt 2MotherPaternal Grandmother Social History Tobacco UseTypesPacks/DayYears UsedDateSmoking Tobacco: Every AmaQmpzlcewif634.8 Started: 03/20/1998Smokeless Tobacco: Never Tobacco Cessation:Ready to Q uit: Yes; Counseling Given: Yes Alcohol UseStandard Drinks/WeekCommentsYes0 (1 standard drink = 0.6 oz pure alcohol)1 drink 4 x a yearPHQ-2AnswerDate RecordedPHQ-2 TOTAL JSKAM441 Social ConnectionsAnswerDate RecordedDo you often feel lonely or isolated from those around you?lcohol UseAnswerDate RecordedHow often do you have a drink containing alcohol?How many drinks containing alcohol do you have on a typical day when you are drinking?How often do you have five or more drinks on one occasion?Financial Resource StrainAnswer Date RecordedDifficulty of Paying Living Buktulmj934/26/2025Difficulty of Paying Living ExpensesNot on file05/09/2024Food InsecurityAnswerDate RecordedDo you worry your food will run out before you are able to buy more? Transportation NeedsAnswerDate RecordedDoes lack of transportation keep you from medical appointments?Does lack of transportation keep you from work, meetings or getting things that you need?Housing StabilityAnswerDate RecordedWhat is your housing situation today?Interpersonal Safety AnswerDate RecordedAre you being hit, kicked, pushed or yelled at (see row info)?No12/25/2024Interpersonal Safety Abuse 12 - 18Not on file12/25/2024 Interpersonal Safety Ambulatory VulnerabilityNot on file12/25/2024Utilities AnswerDate RecordedDo you have trouble paying for utilities (for example, heat, electricity, water, phone)?CommentsNoSex and Gender InformationValueDate RecordedSex Assigned at NuuyrLxnnbz71/19/2021 9:53 AM CDT Legal IoyWsmhsv07/14/2013 5:24 AM CSTGender IkskbxgpTwhpmr15/19/2021 9:53 AM CDT Sexual SlbemerlwxeMbskasad10/19/2021 9:53 AM CDTOccupationIndustryJob Start Date Job End DateRust ConsultingNot on fileNot on fileNot on fileLINE WORKNot on file Not on fileNot on file Obstetrics History GravidaParaTermPretermABIABSABEctopicMultipleLivingLive Gzfqpq361640LqzxUpuvbqh GATotal LaborLabor/2nd/9rvCajyfjDaoOhscCcpaBFWVjgQ4M7OceqZzcfUxwaddk85/27/2005 Ugch80l1a71e 00m/3.37 kg (7 lb 7 oz)CVquXbzdh90/29/2260Oaqb78t9c6z 00m/2.61 kg (5 lb 12 oz)EEzofktlcti65/16/4475Mkbg58d3a7p 00m/3.4 kg (7 lb 8 oz)MVagIsaac 07/24/2012SABBirth Comments:12 weeksGravida Last Filed Vital Signs Vital SignReadingTime TakenCommentsBlood Wzwfzmls720/7001/03/2025 9:23 AM CONVEYOR INSTALLER Zjgye570201/03/2025 9:23 AM YUFRtjqljostzt08.9 ??C (98.4 ??F)12/25/2024 9:50 AM CSTRespiratory Jneg215102/25/2024 9:50 AM CSTOxygen Gqbamzhqoq34%01/03/2025 9:23 AM CSTInhaled Oxygen Concentration--Jjyudy884.3 kg (258 lb 9.6 oz)01/03/2025 9:23 AM YWRPrjone961.8 cm (5' 5.67)01/03/2025 9:23 AM CSTBody Mass Index42.16 01/03/2025 9:23 AM CONVEYOR INSTALLER Plan of Treatment DateTypeDepartmentCare Team (Latest Contact Info)Fqgvywzsqop89/21/2026 2:00 PM CSTProcedure Only [facility] [address] [place] [address] Christine Falk MD [address] [place] [address] Health MaintenanceDue DateLast DoneCommentsHepatitis B series for 19+ (1 of 3 - 19+ 3-dose series)2004Pneumococcal series for age 6-49 (1 of 2 - PCV) 2004HPV series for age 9-45 (1 - 3-dose SCDM series)2012COVID-19 vaccine series ( - 2024- season)2024Influenza Vaccine (#1)2024 12/23/2015, 11/11/2008, 02/09/2006, Additional history existsBMI (ht and wt on same day) for age 18+, 01/01/2025, 08/04/2023, Additional history existsDepression screening for age 12+, 12/21/2023, 11/18/2023, Additional history existsTetanus /, 09/06/2011Pap test for age 21-65, 01/03/2025, 03/17/2021, Additional history existsHIV for age 15-71Trjvgtolq10/08/2016, 04/13/2013, 06/01/2012, Additional history existsHepatitis C screening for age 18-79 Wkmlujmby23/08/2016 Procedures Procedure NamePriorityDate/TimeAssociated DiagnosisCommentsGYN THIN PREP PAP SCREEN YHDGYUIrrksnu80/20/2025 10:18 AM CONVEYOR INSTALLER Screening for cervical cancer HPV HIGH PRLAGnzjpow41/20/2025 10:18 AM CONVEYOR INSTALLER Screening for cervical cancer ECHO TTE COMPLETE WO CDDVIKRHOFJW37/15/2025 11:36 AM CONVEYOR INSTALLER Paroxysmal SVT (supraventricular tachycardia) (HC) EXTENDED MLZASZPzrwzln19/14/2025 Paroxysmal SVT (supraventricular tachycardia) (HC) CBC WITH AUTO SSVOCKKTRBSYEGQS95/11/2025 10:35 AM CONVEYOR INSTALLER QDQGKLD5512/25/2024 10:35 AM CONVEYOR INSTALLER BASIC METABOLIC KQPSFWJHI36/11/2025 10:35 AM CONVEYOR INSTALLER CBC WITH AUTO OECSWSYANRWBKCFI39/11/2025 10:35 AM CONVEYOR INSTALLER EKG 12 NOHIIBZR09/11/2025 9:54 AM CONVEYOR INSTALLER SCAN-RADIOLOGY RATCGN9112/23/2024 12:00 AM CONVEYOR INSTALLER ANTI HIV 1/2Wgjyptz43/08/2016 1:31 PM CONVEYOR INSTALLER Less than 8 weeks gestation of (HC) ANTI ZGRFbpynsr20/08/2016 1:31 PM CONVEYOR INSTALLER Less than 8 weeks gestation of (HC) from Last 3 Months or Most Recently Relevant to Health Maintenance Results * (ABNORMAL) AQUACULTURE FARM MANAGER THIN PREP PAP SCREEN IMAGED [[id number]] (01/03/2025 10:18 AM CONVEYOR INSTALLER)ComponentValueRef RangeTest MethodAnalysis TimePerformed AtPathologist SignatureCase ReportGynecologic Cytology Report ? Case: [id number] ? Authorizing Provider: ??Christine Falk MD ? Collected: ? 01/03/2025 1018 ? Ordering Location: ? [facility] ?? Received: ?01/03/2025 1059 ? Clinic ? First Screen: ?Maximiliano Judd ? Pathologist: ? Walter Galloway Jr., ? MD ? Specimen: ?AQUACULTURE FARM MANAGER ThinPrep Vial Screening, Cervical ? 01/21/2025 12:58 PM [facility] INTERPRETATION/RESULTLOW GRADE SQUAMOUS INTRAEPITHELIAL LESION (LSIL) CANNOT EXCLUDE A HIGHER-GRADE LESION(A)(none)01/21/2025 12:58 PM [facility] at 1258 CSTSPECIMEN ADEQUACYSatisfactory for evaluation Endocervical component uajhovx6501/21/2025 12:58 PM [facility] LABORATORYHPV REQUESTHPV and PAP01/21/2025 12:58 PM [facility] LABORATORYDate of LMP 12:58 PM [facility]OR[facility]ORYLast Pap Date 12:58 PM CONVEYOR INSTALLER [facility] LABORATORYLast Pap CyykakJMHTX98/08/2025 12:58 PM [facility] LABORATORYAbnormal Pap or [place] Bx in last 5 yzqvoSq5201/21/2025 12:58 PM [facility] Menstrual StatusHormonally Pjtpdxzuqj22/08/2025 12:58 PM [facility] LABORATORYColp Bx Done CcoxpZc9801/21/2025 12:58 PM [facility] LABORATORYAdditional InformationNone given01/21/2025 12:58 PM [facility] LABORATORYComment: Cytology is screened at [facility] - [address], [place] [address] and [facility] - [address], [place] [address] and [facility] - [address], [place] [address] Interpreted at [facility] - [address], [place] [address] Automated GrwhseYhkyhpcmam32/08/2025 12:58 PM [facility] LABORATORYComment:Specimen processed successfully by automated machine whitener device, ThinPrep Imaging System, [employer]ANCILLARY TESTING GYNHPV Ordered, Please see separate gukyaw9201/21/2025 12:58 PM CSTST. VINCENT [facility] LABORATORYNoteThe pap test is a screening technique, not a diagnostic procedure. It is used primarily to screen for squamous cancers and precursor lesions. Published studies have shown that it is subject to both false negative and false positive results. The pap test should not be used as the sole means to diagnose or exclude pre-malignant and malignant lesions.01/21/2025 12:58 PM CONVEYOR INSTALLER [facility] LABORATORYSpecimen (Source)Anatomical Location / LateralityCollection Method / VolumeCollection TimeReceived TimeOther (Cervical)Non-Blood / Vyfugiz5201/03/2025 10:18 AM CST01/03/2025 10:59 AM CONVEYOR INSTALLER Narrative Authorizing ProviderResult TypeResult StatusChristine Falk MD PATHOLOGY/CYTOLOGYFinal ResultPerforming OrganizationAddressCity/State/ZIP Code Phone Number [facility] [address] [place] [address], * (ABNORMAL) HPV HIGH RISK (01/03/2025 10:18 AM CONVEYOR INSTALLER)ComponentValueRef RangeTest MethodAnalysis TimePerformed AtPathologist SignatureTYPE 16NegativeNegative 01/08/2025 2:58 PM CSTSOU[facility] LABORATORYTYPE 18 YuuturxtOkkgjiol14/25/2025 2:58 PM [facility] LABORATORYOTHER HIGH RISK TYPESPositive(A)Pfgtutcg54/25/2025 2:58 PM CSTSOUTH [facility]ISS[facility]IP[facility] LABORATORYSpecimen (Source)Anatomical Location / LateralityCollection Method / VolumeCollection TimeReceived TimeOther (Cervical)Non-Blood / Tiqzost2201/03/2025 10:18 AM CST01/04/2025 4:09 PM CONVEYOR INSTALLER Narrative [facility] - 01/08/2025 2:58 PM CONVEYOR INSTALLER Specimen is positive for the DNA of any one of, or combination of, the following high risk HPV types: 31, 33, 35, 39, 45, 51, 52, 56, 58, 59, 66, 68. HPV types 16 and 18 DNA were undetectable or below the pre-set threshold. ? Methodology: [address] HPV Test Authorizing ProviderResult TypeResult StatusChristine Falk MDMICROBIOLOGY Final ResultPerforming OrganizationAddressCity/State/ZIP CodePhone Number [facility] [address] [address], * ECHO TTE COMPLETE WO CONTRAST (12/29/2024 11:36 AM CONVEYOR INSTALLER)ComponentValueRef Range Test MethodAnalysis TimePerformed AtPathologist SignatureAORTIC VALVE MEAN PG5 mmHgEJECTION YJQCMCKU52%LVEDD5.1cmAnatomical RegionLateralityModality UltrasoundSpecimen (Source)Anatomical Location / LateralityCollection Method / VolumeCollection TimeReceived Time12/29/2024 10:55 AM CONVEYOR INSTALLER Narrative 12/31/2024 2:22 PM CONVEYOR INSTALLER ECHOCARDIOGRAM LASHAWN MON ? Accession#: ?? [id number] : ?1985 39 years Study Date: ?? 12/29/2024 10:55:11 AM Gender: F ?BP: ? 106/72 mmHg Height: 165.10 cm ?BSA: ?2.20 m? Weight: 116.58 kg ?Tech: ? RES ? Referring MD: CHRISTINE FALK Site: ? [facility] Reading Location: [place] [facility]-4 Patient Location: Outpatient. Procedure: 2D, Color Doppler and Spectral Doppler. Indication for study: Paroxysmal SVT Cardiac Rhythm: Regular.Study quality: Fair. Final Impressions: 1. Normal left ventricular size, normal wall thickness, normal global systolic function, calculatedEF of 62 %. 2. Normal left atrium size. 3. Normal cardiac valves 4. Compared to the prior study of 08/26/2017, there is no significant change. Chamber Sizes and Function Normal left ventricular size, normal wall thickness, normal global systolic function, calculated EFof 62 %. No resting regional wall motion abnormality visualized. Left atrial size is normal. Left atrial pressure is normal. Right ventricular cavity size is normal, global systolic RV function is normal. RV wall thickness is normal. The right atrium is normal. The pulmonary artery is of normal size and origin. The sinus of Valsalva is normal sized. The ascending aorta is normal sized. Valves, RV Pressures and Diastolic Function The aortic valve is normal in structure and trileaflet, no stenosis and no regurgitation. The mitral valve is normal in structure, no mitral regurgitation. Normal diastolic function. The tricuspid valve is normal in structure, regurgitation is not evident tricuspid regurgitation. Unable to assess right ventricular systolic pressure. The pulmonic valve is normal. No pulmonary regurgitation. Masses, Effusion, Shunts There is no pericardial effusion. The inferior vena cava is normal sized, respiratory size variation greater than 50%. No left to right shunting was detected by limited color flow Doppler interrogation of the interatrial septum. MEASUREMENTS AND CALCULATIONS 2-D Measurements and LV Function: LVID (d) ? 5.1 cm ? Planimetered EF 62 % LVID (s) ? 3.4 cm ? LV FS% (2D) ? 33 % IVS (d) ?0.8 cm ? LVOT diameter ?? 2.0 cm LVPW (d) ? 0.8 cm ? HR ?63 bpm Ao Sinus ? 3.2 cm ? LA Vol index ?19 ml/m2 Ao Sinus ULN 3.6 cm * ? RV Basal Diam ?? 3.3 cm Asc Ao ? 2.8 cm ? RV Mid Diam ? 2.6 cm Asc Ao ULN ?? 3.5 cm * * Input BSA outside of range, reported values correspond to BSA = 1.9 Diastology: Mitral ?Tissue Doppler E Peak 0.8 m/s ??e', Septum ? 0.12 m/s A Peak 0.5 m/s ??e', Lateral ?0.17 m/s E/A ?1.6 ?E/e' Average ?? 5.42 DT ? 211 msec Aortic Valve: Vmax ? 1.4 m/s ??LIO (V) ?? 2.44 cm? VTI ?0.32 m ?? LIO (I) ?? 2.39 cm? LVOT V max 1.1 m/s ??Max PG ?8 mmHg LVOT VTI ?? 0.25 m ?? Mean PG ?? 5 mmHg SV ? 78 ml ?Dim Index 0.76 SV index ?? 35 ml/m? CO ?4.9 l/min ?CI ?2.2 l/min/m? Mitral Valve: MVA ?3.6 cm? MV P 1/2 61 msec Tricuspid Valve and estimated PA pressures: TAPSE 2.3 cm . This study was interpreted by an [facility] accredited facility. ??Final ?? Procedure Note Vini Hebert MD - 12/31/2024 ECHOCARDIOGRAM LASHAWN MON : 1985 39 years Study Date: 12/29/2024 10:55:11 AM Gender: F BP: 106/72 mmHg Height: 165.10 cm BSA: 2.20 m? Weight: 116.58 kg Tech: RES Referring MD: CHRISTINE FALK Site: [facility] Reading Location: [place] [facility]4 Patient Location: Outpatient. Procedure: 2D, Color Doppler and Spectral Doppler. Indication for study: Paroxysmal SVT Cardiac Rhythm: Regular.Study quality: Fair. Final Impressions: 1. Normal left ventricular size, normal wall thickness, normal globalsystolic function, calculated EF of 62 %. 2. Normal left atrium size. 3. Normal cardiac valves 4. Compared to the prior study of 08/26/2017, there is no significantchange. Chamber Sizes and Function Normal left ventricular size, normal wall thickness, normal globalsystolic function, calculated EF of 62 %. No resting regional wall motionabnormality visualized. Left atrial size is normal. Left atrial pressureis normal. Right ventricular cavity size is normal, global systolic RVfunction is normal. RV wall thickness is normal. The right atrium isnormal. The pulmonary artery is of normal size and origin. The sinus ofValsalva is normal sized. The ascending aorta is normal sized. Valves, RV Pressures and Diastolic Function The aortic valve is normal in structure and trileaflet, no stenosis and no regurgitation. The mitral valve is normal in structure, no mitralregurgitation. Normal diastolic function. The tricuspid valve is normal instructure, regurgitation is not evident tricuspid regurgitation. Unable toassess right ventricular systolic pressure. The pulmonic valve is normal.No pulmonary regurgitation. Masses, Effusion, Shunts There is no pericardial effusion. The inferior vena cava is normal sized, respiratory size variation greater than 50%. No left to right shunting was detected by limited color flow Doppler interrogation of the interatrialseptum. MEASUREMENTS AND CALCULATIONS 2-D Measurements and LV Function: LVID (d) 5.1 cm Planimetered EF 62% LVID (s) 3.4 cm LV FS% (2D) 33% IVS (d) 0.8 cm LVOT diameter2.0 cm LVPW (d) 0.8 cm HR 63bpm Ao Sinus 3.2 cm LA Vol index 19ml/m2 Ao Sinus ULN 3.6 cm * RV Basal Diam3.3 cm Asc Ao 2.8 cm RV Mid Diam2.6 cm Asc Ao ULN 3.5 cm * * Input BSA outside of range, reported values correspond to BSA = 1.9 Diastology: Mitral Tissue Doppler E Peak 0.8 m/s e', Septum 0.12 m/s A Peak 0.5 m/s e', Lateral 0.17 m/s E/A 1.6 E/e' Average 5.42 DT 211 msec Aortic Valve: Vmax 1.4 m/s LIO (V) 2.44 cm? VTI 0.32 m LIO (I) 2.39 cm? LVOT V max 1.1 m/s Max PG 8 mmHg LVOT VTI 0.25 m Mean PG 5 mmHg SV 78 ml Dim Index 0.76 SV index 35 ml/m? CO 4.9 l/min CI 2.2 l/min/m? Mitral Valve: MVA 3.6 cm? MV P 1/2 61 msec Tricuspid Valve and estimated PA pressures: TAPSE 2.3 cm . This study was interpreted by an [facility] accredited facility. Final Authorizing ProviderResult TypeResult StatusMeljosh Falk MDECHO ORDFinal Result * ZIO PATCH XT - weekly to monthly symptoms. (12/28/2024)Specimen (Source) Anatomical Location / LateralityCollection Method / VolumeCollection Time Received Time12/28/2024 Narrative Boni Klein MD - 01/15/2025 12:00 AM CONVEYOR INSTALLER Agree with Findings. Please see scan document for full report. Signed By Boni Klein MD Procedure Note Boni Klein MD - 01/15/2025 Agree with Findings. Please see scan document for full report. Signed By Boni Klein MD Authorizing ProviderResult TypeResult StatusMeljosh Falk MDCARDIAC SERVICES ORDFinal Result * (ABNORMAL) CBC WITH AUTO DIFFERENTIAL (12/25/2024 10:35 AM CONVEYOR INSTALLER)ComponentValue Ref RangeTest MethodAnalysis TimePerformed AtPathologist SignatureWHITE BLOOD COUNT13.2(H)4.5 - 11.0 thou/cu mm12/25/2024 10:44 AM [facility] LABORATORYRED BLOOD COUNT4.644.00 - 5.20 mil/cu mm12/25/2024 10:44 AM [facility] DEJCZSOUFERDIKOIDSWD53.512.0 - 16.0 g/dL12/25/2024 10:44 AM [facility] GAMWCXASZNCSOCFJOUOL40.433.0 - 51.0 % 12/25/2024 10:44 AM [facility] CCDPAAHCBVIHI8697 - 100 fL 12/25/2024 10:44 AM [facility] ENRYMZFNRTKXF06.326.0 - 34.0 pg12/25/2024 10:44 AM [facility] QIDFQNMQCNTCMD72.232.0 - 36.0 g/dL12/25/2024 10:44 AM [facility] YVICRKQBCLCXJ77.711.5 - 15.5 %12/25/2024 10:44 AM [facility] LABORATORYPLATELET REDOQ133348 - 440 thou/cu mm12/25/2024 10:44 AM [facility] LABORATORYMPV9.86.5 - 11.0 fL12/25/2024 10:44 AM [facility]% NEUT65.6%12/25/2024 10:44 AM [facility]% LYMPH27.4%12/25/2024 10:44 AM [facility]% MONO4.8%12/25/2024 10:44 AM [facility] % EOS1.7%12/25/2024 10:44 AM [facility]% BASO0.5% 12/25/2024 10:44 AM [facility] LABORATORYABSOLUTE NEUTROPHILS 8.6(H)1.7 - 7.0 thou/cu 12/25/2024 10:44 AM [facility] LABORATORYABSOLUTE LYMPHOCYTES3.6(H)0.9 - 2.9 thou/cu 12/25/2024 10:44 AM [facility] LABORATORYABSOLUTE MONOCYTES0.6<0.9 thou/cu mm 12/25/2024 10:44 AM [facility] LABORATORYABSOLUTE EOSINOPHILS 0.2<0.5 thou/cu 12/25/2024 10:44 AM [facility] ABSOLUTE BASOPHILS0.1<0.3 thou/cu 12/25/2024 10:44 AM [facility] LABORATORYSpecimen (Source)Anatomical Location / LateralityCollection Method / VolumeCollection TimeReceived TimeBloodBLOOD SPECIMEN / Unknown Venipuncture / Opclypb0112/25/2024 10:35 AM [facility]12/25/2024 10:40 AM CONVEYOR INSTALLER Narrative Authorizing ProviderResult TypeResult StatusJulieacarisa Cade MDHEMATOLOGY Final ResultPerforming OrganizationAddressCity/State/ZIP CodePhone Number [facility] [address] [place] [address] * TSH (12/25/2024 10:35 AM CONVEYOR INSTALLER)ComponentValueRef RangeTest MethodAnalysis Time Performed AtPathologist SignatureTSH1.250.27 - 4.20 uIU/mL12/25/2024 11:20 AM [facility] LABORATORYSpecimen (Source)Anatomical Location / LateralityCollection Method / VolumeCollection TimeReceived TimeBloodBLOOD SPECIMEN / UnknownVenipuncture / Dmllhap9712/25/2024 10:35 AM [facility]12/25/2024 10:40 AM CONVEYOR INSTALLER Narrative [facility] - 12/25/2024 11:20 AM CONVEYOR INSTALLER In Adults, TSH values between 5.00 and 10.00 uIU/ml do not necessarily indicate the presence of Hypothyroidism. Correlation with clinical findings such as presence of goiter and/or Thyroperoxidase (TPO) Antibody may be helpful. For more information please refer to AMANDA 2004; 291: 228-238. Authorizing ProviderResult TypeResult StatusJulieanne Valerie Cade MDCHEMISTRY Final ResultPerforming OrganizationAddressCity/State/ZIP CodePhone Number [facility] [address] [place] [address] * (ABNORMAL) BASIC METABOLIC PANEL (12/25/2024 10:35 AM CONVEYOR INSTALLER)ComponentValueRef RangeTest MethodAnalysis TimePerformed AtPathologist HhejfzruxHXTYDH671201 - 145 mmol/L102/25/2024 11:20 AM [facility] LABORATORYPOTASSIUM 4.03.5 - 5.1 mmol/L102/25/2024 11:20 AM [facility] UAIGNDCK88684 - 107 mmol/L102/25/2024 11:20 AM [facility] LABORATORYCO2,AHGKE8314 - 29 mmol/L102/25/2024 11:20 AM [facility] LABORATORYANION AKA728 - 18102/25/2024 11:20 AM [facility] KVMOLRZTUYRIHQBIV460(H)70 - 99 mg/dL12/25/2024 11:20 AM [facility] LABORATORYCALCIUM9.58.8 - 10.4 mg/dL12/25/2024 11:20 AM [facility] LABORATORYComment: Reference ranges for this test were updated on 12/20/2023 to reflect our healthy population more accurately. Reference range changes are not retroactively applied to results, but previous results using the same methodology can be interpreted in the context of the new reference range. OUR382 - 20 mg/dL12/25/2024 11:20 AM [facility] CREATININE0.640.50 - 0.90 mg/dL12/25/2024 11:20 AM [facility] LABORATORYBUN/CREAT CLBVE2706 - 11:20 AM [facility] LABORATORYeGFR>90>90 mL/min/1.94h20712/25/2024 11:20 AM [facility] LABORATORYComment:As of 04/28/2021, eGFR is calculated by the CKD-EPI creatinine equation without race adjustment. ??eGFR can be influenced by muscle mass, exercise, and diet. ??The reported eGFR is an estimation onlyand is only applicable if the renal function is stable.Specimen (Source)Anatomical Location / LateralityCollection Method / VolumeCollection TimeReceived TimeBlood BLOOD SPECIMEN / UnknownVenipuncture / Ltdzhpy7812/25/2024 10:35 AM CST12/25/2024 10:40 AM CONVEYOR INSTALLER Narrative Authorizing ProviderResult TypeResult StatusJurk Valerie Rayo MDCHEMISTRY Final ResultPerforming OrganizationAddressCity/State/ZIP CodePhone Number [facility] [address] [place] [address] * EKG 12 LEAD (12/25/2024 9:54 AM CONVEYOR INSTALLER)ComponentValueRef RangeTest MethodAnalysis TimePerformed AtPathologist SignatureInterpretationNormal sinus rhythm with sinus arrhythmia Low voltage QRS Borderline ECG When compared with ECG of 12-Jul-2023 19:30, No significant change was found BEYOND NOWVentricular Okwd44NDZGBTWPT NOWAtrial Frsp34SENKBPPQE NOWP-R Interval 156msBEYOND NOWQRS Ritdpmkc08uoDUJDZA FIWKS136cgNJZWPN BMRSEg926ztDUGTFW NOWP Iqmu09fclsdyxMEJALR NOWR Vvxg81zdiktvvZURKGT NOWT Gqrf15prqjcooZGIOBO NOW Specimen (Source)Anatomical Location / LateralityCollection Method / Volume Collection TimeReceived Time12/25/2024 9:54 AM CST12/25/2024 4:28 PM CONVEYOR INSTALLER Narrative Authorizing ProviderResult TypeResult StatusJurk Valerie Rayo MDEKG ORD Final ResultPerforming OrganizationAddressCity/State/ZIP CodePhone Number [facility] [place], [place] * SCAN-RADIOLOGY REPORT (12/23/2024 12:00 AM CONVEYOR INSTALLER)Anatomical RegionLaterality ModalityOther Narrative Authorizing ProviderResult TypeResult StatusScannerOTHERFinal Result * ANTI HCV (12/23/2015 1:31 PM CONVEYOR INSTALLER)ComponentValueRef RangeTest MethodAnalysis TimePerformed AtPathologist SignatureHEPATITIS C ANTIBODYNon-Reactive Non-Fhgdohhk58/08/2016 9:27 PM [facility] Specimen (Source)Anatomical Location / LateralityCollection Method / Volume Collection TimeReceived TimeBloodBLOOD SPECIMEN / UnknownVenipuncture / Zjeukwp4112/23/2015 1:31 PM CST12/23/2015 1:31 PM CONVEYOR INSTALLER Narrative [facility] - 12/23/2015 9:27 PM CONVEYOR INSTALLER Antibodies to HCV not detected; does not exclude the possibility of exposure to HCV. Authorizing ProviderResult TypeResult StatusEmily NANCE OUTS Final ResultPerforming OrganizationAddressty/State/ZIP CodePhone Number [facility] [address] [place] [address], * ANTI HIV 1/2 (12/23/2015 1:31 PM CONVEYOR INSTALLER)ComponentValueRef RangeTest Method Analysis TimePerformed AtPathologist SignatureHIV-1/HIV-2 ANTIBODYNon-Reactive Non-Xywbjztv12/08/2016 9:31 PM [facility] Specimen (Source)Anatomical Location / LateralityCollection Method / Volume Collection TimeReceived TimeBloodBLOOD SPECIMEN / UnknownVenipuncture / Xisxclj0412/23/2015 1:31 PM CST12/23/2015 1:31 PM CONVEYOR INSTALLER Narrative [facility] - 12/23/2015 9:31 PM CONVEYOR INSTALLER HIV-1 p24 and HIV-1/HIV-2 Ab not detected Authorizing ProviderResult TypeResult StatusEmily FUENTES Final ResultPerforming OrganizationAddressCity/State/ZIP CodePhone Number [facility] [address] from Last 3 Months or Most Recently Relevant to Health Maintenance Insurance * Guarantor: Lashawn Mon LAccjostin TypeRelation to PatientDate of BirthPhone Billing AddressWorkers YkieAeqq60/15/1986 [address] [place] [address] * Guarantor: Lashawn Mon LAccount TypeRelation to PatientDate of BirthPhone Billing AddressWorkers WcbaAuce68/15/1986 [facility] [place] [address] * Guarantor: MALT Margaret MEAL ZZZ DO NOT USEAccount TypeRelation to PatientDate of BirthPhoneBilling [facility] [address] [facility] [phone] [place] [address] Care Teams Team MemberRelationshipSpecialtyStart DateEnd Date Christine Falk MD [address] [place] [address] PCP - [facility]02/15/17
[2025-01-23 21:00] VITALS: BP 153/93; PULSE 72; RESP 18; TEMP 36.7; O2SAT 100; BMI 43.3
--- NOTE | 2025-01-23 21:16 | ED_ITS ---
HPI - Weakness General Time Seen by Provider: 21:16 Date Seen: 01/23/25 Chief complaint: Weakness Stated complaint: dizzy, weak, uncomfortable, anxiety Time Seen by Provider: 01/23/25 21:15 Source: patient Mode of arrival: ambulatory History of Present Illness HPI Narrative: Meliza is a 39 yo female with a past medical history of anxiety who presents to the ED for evaluation of generalized weakness. Patient complains of generalized weakness, lightheadedness. Patient reports intermittent symptoms but have been ongoing for the past few weeks. Patient reports worsening symptoms today which prompted her to come in for evaluation. Patient states that symptoms started shortly after she was initially seen in the emergency department back in December a few weeks ago with an episode of SVT. Patient followed up with Cardiology and was placed on metoprolol 12.5 mg twice a day. Patient states that since she would and SVT she completely stopped drinking energy drinks (reports she used to consume at least 4 energy drinks a day) and since that time she has been drinking a lot a water. Patient states that she drinks approximately 200 oz of water a day. 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 Patient reports that she talk to her doctor earlier today who recommended her to decrease her water intake down to 150 oz a day. Patient denies any fever, chills, chest pain, shortness of breath, abdominal pain, nausea, vomiting. Denies any dysuria, headache, focal weakness, paresthesias. No other complaints. Related Data Home Medications ?Medication ?Instructions ?Recorded ?Confirmed levonorgestrel (Mirena) intrauterine 12/23/24 Previous Rx's ?Medication ?Instructions ?Recorded metoprolol tartrate 25 mg tablet 12.5 mg (1/2 x 25 mg) PO BID PRN 12/23/24 Dizzy spells #30 tabs Allergies Allergy/AdvReac Type Severity Reaction Status Date / Time Penicillins Allergy Verified 12/23/23 18:02 Review of Systems Narrative: Past medical history, past surgical history, medications, allergies, family history, and social history were reviewed with the patient. No additional pertinent items. A medically appropriate review of systems was performed with pertinent positives and negatives noted in HPI, all other systems negative. [facility] Medical History (Updated 01/23/25 @ 23:46 by Erica Ahumada MD) Generalized anxiety disorder ?F41.1 - Generalized anxiety disorder (ICD-10) Social History Smoking Status: Current every day smoker What tobacco products do you use: cigarettes Do you use any of these nicotine containing products: None Second hand tobacco smoke exposure: No How often do you have a drink containing alcohol: monthly or less How many standard drinks containing alcohol do you have on a typical day: 3 or 4 How often do you have six or more drinks on one occasion: Never AUDIT-C Alcohol total score: 2 Non-prescribed substance use: denies use service: No Exam Narrative: Exam Narrative: General: Afebrile, anxious, in distress HEENT: Normocephalic, atraumatic, conjunctiva normal. MMM Neck: non-tender, supple Cardio: regular rate. regular rhythm Resp: Normal work of breathing, no respiratory distress, lungs clear bilaterally, no wheezing, rhonchi, rales Chest/Back: no visual signs of trauma, no midline tenderness, no CVA tenderness Abdomen: soft, non distension, no tenderness, no peritoneal signs Neuro: alert and fully oriented. CN II-XII grossly intact. Grossly normal strength and sensation in all extremities. MSK: no deformities. Normal range of motion Integumentary/Skin: no rash visualized, normal color Psych: normal affect, normal behavior Const: Vital Signs, click to edit/add: Vital Signs - 24 hr 01/23/25 21:00 Temperature 98.0 F Pulse Rate [Pulse Oximeter] 72 Respiratory Rate 18 Blood Pressure [Ri ght Upper Arm] 153/93 H Pulse Oximetry 100 Oxygen Delivery Me thod Room Air Course Vital Signs Vital signs: Initial Vital Signs Temperature 98.0 F 01/23/25 21:00 Temperature Source Temporal Artery Scan 01/23/25 21:00 Pulse Rate 72 01/23/25 21:00 Pulse Rhythm Regular 01/23/25 21:00 Respiratory Rate 18 01/23/25 21:00 Blood Pressure 153/93 H 01/23/25 21:00 Blood Pressure Mean 113 H 01/23/25 21:00 Blood Pressure Position Supine 01/23/25 21:00 Pulse Oximetry 100 01/23/25 21:00 Oxygen Delivery Method Room Air 01/23/25 21:00 Vital Signs Temperature 98.0 F 01/23/25 21:00 Pulse Rate 72 01/23/25 21:00 Respiratory Rate 18 01/23/25 21:00 Blood Pressure 153/93 H 01/23/25 21:00 Pulse Oximetry 100 01/23/25 21:00 Oxygen Delivery Method Room Air 01/23/25 21:00 Temperature 98.0 F 01/23/25 21:00 Pulse Rate 72 01/23/25 21:00 Respiratory Rate 18 01/23/25 21:00 Blood Pressure 153/93 H 01/23/25 21:00 Pulse Oximetry 100 01/23/25 21:00 Oxygen Delivery Method Room Air 01/23/25 21:00 MDM - Weakness MDM Narrative Medical decision making narrative: Meliza is a 39 yo female with a past medical history of anxiety who presents to the ED for evaluation of generalized weakness. Upon arrival patient is nontoxic appearing, afebrile, anxious, in distress. Patient is slightly hypertensive upon arrival with a blood pressure 153/93, heart rate 72, oxygen 100% on room air. Differential diagnosis includes but is not limited to metabolic/electrolyte versus cardiac versus infectious versus anxiety versus medication side effect among others. Upon arrival EKG, comprehensive labs performed as well as chest x-ray and urinalysis. Per chart review patient was seen in the emergency department on 12/23/2024 for dizziness. Concerned for rhythm strip per EMS SVT prior to arrival. Initial EKG demonstrated normal sinus rhythm and no recurrent arrhythmias while in the emergency department. Patient had unremarkable workup, was arranged to follow- up with cardiology outpatient as well as Holter monitor and echocardiogram. Patient started metoprolol 12.5 mg b.i.d. p.r.n.. I reviewed EKG which demonstrates normal sinus rhythm, normal axis, ventricular rate of 73 beats per minute, QTC 418, no acute ischemic change. No significant change when compared to prior. Comprehensive labs remarkable for mild leukocytosis white blood cell count of 13.19 (prior 12.9), hemoglobin 14.2, sodium 139, potassium 3.5, chloride 105, creatinine 0.6, glucose 156, no transaminitis, negative test, normal TSH. Urinalysis with no evidence of acute infection, negative troponin of < 2.9. I personally reviewed interpreted chest x-ray which is unremarkable with no cardiomegaly, no pleural effusion, pneumothorax, focal infiltrate. On re-evaluation patient continues your resting comfortably, no distress. I discussed results with patient. No clear etiology of patient's symptoms. No evidence of a risk any a, EKG, troponin within normal limits. No evidence of acute infection. No acute metabolic or electrolyte abnormality. At this time I think it is reasonable for discharge home with continued supportive care however do strongly encourage patient to follow up closely with her primary care provider as well as our environmental consultant to further evaluate monitor ongoing symptoms as well as possible medication adjustments. Return precautions discussed. Patient understands and agrees the plan. Medical Records Attestation: I reviewed the patient's medical records. Lab Data Attestation: I reviewed the patient's lab results. Labs: Lab Results 01/23/25 01/23/25 01/23/25 Range/Units 21:41 21:42 21:43 WBC 13.19 H (4.50-11.00) K/uL RBC 4.51 (4.00-5.20) m/uL Hgb 14.2 (12.0-16.0) gm/dL Hct 41.6 (33.0-51.0) % MCV 92 (80-100) fL MCH 32 (26-34) pg MCHC 34 (32-36) gm/dL RDW Coeff of Kenny 12.3 (11.5-15.5) % Plt Count 308 (140-440) K/uL Neut % (Auto) 51.6 (42.0-72.0) % Lymph % (Auto) 38.3 (20-44) % [place] % (Auto) 5.5 (0.0-11.0) % Eos % (Auto) 3.6 (0.0-7.0) % Baso % (Auto) 0.8 (0.0-3.0) % Neut # (Auto) 6.80 (1.7-7.0) K/uL Lymph # (Auto) 5.10 H (0.90-2.90) K/uL [place] # (Auto) 0.70 (0.00-0.90) K/UL Eos # (Auto) 0.50 (0.00-0.50) K/uL Baso # (Auto) 0.10 (0.00-0.30) K/uL Abs Immat Gran (auto) 0.00 (0.00-0.30) K/uL Imm/Tot Granulo (auto) 0.2 % Sodium 139 (135-149) mmol/L Potassium 3.5 L (3.6-5.1) mmol/L Chloride 105 (96-114) mmol/L Carbon Dioxide 22 (20-32) mmol/L Anion Gap 12 (7-15) mEq/L BUN 12 (5-24) mg/dL Creatinine 0.6 (0.5-1.5) mg/dL Estimated Creat Clear 113.27 Estimated GFR 117 ml/min Glucose 156 H (60-115) mg/dL Calcium 8.8 (8.4-10.6) mg/dL Total Bilirubin 0.3 (0.1-1.5) mg/dL AST 21 (12-35) U/L ALT 21 (4-35) U/L Alkaline Phosphatase 80 (40-150) U/L POC Troponin I High Sensi < 2.9 L (2.9-13.0) pg/mL Total Protein 6.6 (6.0-8.3) g/dL Albumin 4.1 (3.3-5.0) g/dL TSH 3.880 (0.270-4.200) uIU/mL HCG, Qual Negative (Negative) Urine Color (Yellow) Urine Appearance (Clear) Urine pH (5.0-8.5) Ur Specific [place] (1.000-1.030) Urine Protein (Negative) Urine Glucose (UA) (Negative) Urine Ketones (Negative) Urine Blood (Negative) Urine Nitrite (Negative) Urine Bilirubin (Negative) Urine Urobilinogen (0.2-1.0) Ur Leukocyte Esterase (Negative) Urine RBC (0-2) Urine WBC (0-5) Ur Squamous Epith Cells (None-Few) Urine Bacteria (None) 01/23/25 Range/Units 22:20 WBC (4.50-11.00) K/uL RBC (4.00-5.20) m/uL Hgb (12.0-16.0) gm/dL Hct (33.0-51.0) % MCV (80-100) fL MCH (26-34) pg MCHC (32-36) gm/dL RDW Coeff of Kenny (11.5-15.5) % Plt Count (140-440) K/uL Neut % (Auto) (42.0-72.0) % Lymph % (Auto) (20-44) % [place] % (Auto) (0.0-11.0) % Eos % (Auto) (0.0-7.0) % Baso % (Auto) (0.0-3.0) % Neut # (Auto) (1.7-7.0) K/uL Lymph # (Auto) (0.90-2.90) K/uL [place] # (Auto) (0.00-0.90) K/UL Eos # (Auto) (0.00-0.50) K/uL Baso # (Auto) (0.00-0.30) K/uL Abs Immat Gran (auto) (0.00-0.30) K/uL Imm/Tot Granulo (auto) % Sodium (135-149) mmol/L Potassium (3.6-5.1) mmol/L Chloride (96-114) mmol/L Carbon Dioxide (20-32) mmol/L Anion Gap (7-15) mEq/L BUN (5-24) mg/dL Creatinine (0.5-1.5) mg/dL Estimated Creat Clear Estimated GFR ml/min Glucose (60-115) mg/dL Calcium (8.4-10.6) mg/dL Total Bilirubin (0.1-1.5) mg/dL AST (12-35) U/L ALT (4-35) U/L Alkaline Phosphatase (40-150) U/L POC Troponin I High Sensi (2.9-13.0) pg/mL Total Protein (6.0-8.3) g/dL Albumin (3.3-5.0) g/dL TSH (0.270-4.200) uIU/mL HCG, Qual (Negative) Urine Color Yellow (Yellow) Urine Appearance Clear (Clear) Urine pH 7.5 (5.0-8.5) Ur Specific [place] 1.010 (1.000-1.030) Urine Protein Negative (Negative) Urine Glucose (UA) Negative (Negative) Urine Ketones Negative (Negative) Urine Blood Trace-lysed A (Negative) Urine Nitrite Negative (Negative) Urine Bilirubin Negative (Negative) Urine Urobilinogen 0.2 (0.2-1.0) Ur Leukocyte Esterase Negative (Negative) Urine RBC 0-2 (0-2) Urine WBC 0-2 (0-5) Ur Squamous Epith Cells Few (None-Few) Urine Bacteria None (None) Imaging Data Chest x-ray: Attestation: I have reviewed the pertinent imaging results. Radiologist's impression: Patient: Meliza Gonzalez MR#: [id number] : 1985 Acct:[id number] Loc: ED Service Date: 01/23/[address]: Ordering Physician: Erica Ahumada M.D. Date of Service: 01/23/25 Procedure(s): XR chest 2V Accession Number(s): [id number] cc: Erica Ahumada M.D.; Stacia Falk M.D.~ For Patients: As a result of the Cures Act, medical imaging exams and procedure reports are released immediately into your electronic medical record. You may view this report before your referring provider. If you have questions, please contact your health care provider. INDICATION: Weakness, lightheaded TECHNIQUE: Chest radiograph 2 views COMPARISON: 12/23/2024 FINDINGS: The sensitivity and specificity of the exam are moderately limited by the patient`s body habitus. Mediastinum: The central pulmonary arteries are near the upper limits of normal in size. The heart silhouette is normal in size and morphology. Lung: Both lungs are unremarkable in appearance. No sign of pleural effusion seen. No pneumothorax is identified. Bone and Soft tissue: Unremarkable for age. IMPRESSION: 1. No acute cardiopulmonary disease is seen. Dictated by Casey Lopes MD @ 01/23/2025 10:41:12 PM Dictated by: Casey Lopes MD @ 01/23/2025 22:41:25 (Electronically Signed) Discharge Plan Discharge Clinical Impression: Generalized weakness, Light-headedness Patient Disposition: Home, Self-Care Condition: Stable Additional Instructions: Please follow-up with your primary care provider in the next 3-5 days for further evaluation and follow-up. Please call to schedule appointment. We also recommend following up with your environmental consultant regarding the dose of your metoprolol. Please continue on medications. Please return to the emergency department if any worsening symptoms. It was a pleasure taking care of you today. We hope you feel better soon. Prescriptions: No Action Mirena 21 mcg/24hr (up to 8 yrs) 52 mg intrauterine device intrauterine metoprolol tartrate 25 mg tablet 12.5 mg PO BID PRN (Reason: Dizzy spells) Qty: 30 2RF Follow Up/Referrals: Stacia Falk MD [Primary Care Provider, Family Practice] Stand Alone Forms: [place] Translate Info Instructions
[2025-01-23 21:49] LABS: Hematocrit* 41.6 % (33.0-51.0); Hemoglobin* 14.2 gm/dL (12.0-16.0); Immature Granulocytes Pct Auto 0.2 %; Mean Corpuscular HGB Conc 34 gm/dL (32-36); Mean Corpuscular Hemoglobin 32 pg (26-34); Mean Corpuscular Volume 92 fL (80-100); RDW Coefficient of Variation % 12.3 % (11.5-15.5); Red Blood Count* 4.51 m/uL (4.00-5.20); White Blood Count* 13.19 K/uL (4.50-11.00)
[2025-01-23 21:59] LABS: Albumin* 4.1 g/dL (3.3-5.0); Chloride* 105 mmol/L (96-114); Potassium* 3.5 mmol/L (3.6-5.1); Sodium* 139 mmol/L (135-149)
[2025-01-23 22:02] LABS: Alanine Aminotransferase* 21 U/L (4-35); Alkaline Phosphatase* 80 U/L (40-150); Anion Gap 12 mEq/L (7-15); Aspartate Amino Transferase* 21 U/L (12-35); Bilirubin Total* 0.3 mg/dL (0.1-1.5); Blood Urea Nitrogen* 12 mg/dL (5-24); Calcium* 8.8 mg/dL (8.4-10.6); Carbon Dioxide* 22 mmol/L (20-32); Creatinine* 0.6 mg/dL (0.5-1.5); Est. Creatinine Clearance* 113.27; Estimated Glomerular Filt Rate 117 ml/min; Glucose* 156 mg/dL (60-115); HCG Qualitative Serum* Negative (Negative); Total Protein* 6.6 g/dL (6.0-8.3)
[2025-01-23 22:13] LABS: Immature Granulocytes Abs Auto 0.00 K/uL (0.00-0.30); Lymphocytes Absolute Auto 5.10 K/uL (0.90-2.90); Slide Review Reflex No
--- NOTE | 2025-01-23 22:16 | CRLHL7_ITS ---
For Patients: As a result of the Century Cures Act, medical imaging exams and procedure reports are released immediately into your electronic medical record. You may view this report before your referring provider. If you have questions, please contact your health care provider. INDICATION: Weakness, lightheaded TECHNIQUE: Chest radiograph 2 views COMPARISON: 12/23/2024 FINDINGS: The sensitivity and specificity of the exam are moderately limited by the patient`s body habitus. Mediastinum: The central pulmonary arteries are near the upper limits of normal in size. The heart silhouette is normal in size and morphology. Lung: Both lungs are unremarkable in appearance. No sign of pleural effusion seen. No pneumothorax is identified. Bone and Soft tissue: Unremarkable for age. IMPRESSION: 1. No acute cardiopulmonary disease is seen. Dictated by Casey Lopes MD @ 01/23/2025 10:41:12 PM Dictated by: Casey Lopes MD @ 01/23/2025 22:41:25 (Electronically Signed)
[2025-01-23 22:28] LABS: Appearance Urine Clear (Clear)
[2025-01-23 22:49] LABS: TSH With Reflex to FT4* 3.880 uIU/mL (0.270-4.200)
[2025-01-23 23:48] VITALS: BP 138/87; PULSE 68; RESP 18; TEMP 36.7; O2SAT 100
[2025-01-23 23:53] VITALS: BP 138/87; PULSE 68; RESP 18; TEMP 36.7
== END 2025-01-23 23:53 | disposition home or self-care (01) ==
PROVIDERS: Emergency Provider Emergency Medicine; PCP Family Medicine
DX: R53.1 Weakness (principal); R42 Dizziness and giddiness; Z88.0 Allergy status to penicillin
CPT/HCPCS: 36415; 71046; 80053; 81001; 84443; 84484; 84703; 85025; 93005; 99284; 99285